=== PATIENT | female | born 1995 | race Caucasian/White ===

== ENCOUNTER 2018-05-06 08:46 | Emergency (ER) | payer OTHER ==
--- NOTE | 2018-05-06 09:34 | ED Physician Documentation ---
PD HPI UPPER EXT INJURY - Stated complaint Stated Complaint: RT RING FING SWELLING - Chief complaint Chief Complaint: Ext Problem - History obtained from History obtained from: Patient - History of Present Illness Location: Right, Finger (ring finger swelling due to ring tight. She does not usually wear ring on that finger. Painful to try to pull it off.) Type of injury: Other (ring stuck on finger and causing distal swelling.) Timing - onset: Today Timing - details: Gradual onset Worsened by: Moving, Palpating Associated symptoms: Swelling. No: Weakness, Numbness Similar symptoms before: Has not had sx before Review of Systems Neurologic: denies: Focal weakness, Numbness PD PAST MEDICAL HISTORY - Past Medical History Musculoskeletal: None - Present Medications Home Medications: Ambulatory Orders Medication Instructions Recorded Confirmed Pnv No.122/Iron/Folic Acid 05/06/18 [ Multi Tablet] - Allergies Allergies/Adverse Reactions: Allergies Allergy/AdvReac Type Severity Reaction Status Date / Time No Known Drug Allergies Allergy Verified 05/06/18 09:15 PD ED PE NORMAL - Vitals Vital signs reviewed: Yes - General General: Alert and oriented X 3, No acute distress, Well developed/nourished - Derm Derm: Normal color, Warm and dry - Extremities Extremities: Other (right ring finger with swelling distal to ring on finger. No sores. ) Results - Vitals Vitals: Oxygen O2 Source Room air PD MEDICAL DECISION MAKING - ED course Complexity details: considered differential (ring removal by nursing. Digital block with 2% lido proximal to the ring (MC head area) to help with the discomfort of the removal. ), d/w patient - Sepsis Event Vital Signs: Oxygen O2 Source Room air Departure - Departure Disposition: 01 Home, Self Care Clinical Impression: Finger swelling Condition: Stable Record reviewed to determine appropriate education?: Yes Comments: Let the swelling of the finger down through the day. Tylenol or ibuprofen if needed for pains. Discharge Date/Time: 05/06/18 10:11
[2018-05-06] MEDS ORDERED: LIDOCAINE 2% 10 ML MDV ONE (10:07)
[2018-05-06 10:13] VITALS: BP 109/84
== END 2018-05-06 10:11 | disposition home or self-care (01) ==
LOC: ED 08:46
DX: R22.9 Localized swelling, mass and lump, unspecified (principal); S60.454A Superficial foreign body of right ring finger, initial encounter; W49.04XA Ring or other jewelry causing external constriction, initial encounter
CPT/HCPCS: 64450; 99282; 99283

== ENCOUNTER 2018-05-13 19:37 | Emergency (ER) | payer OTHER ==
[2018-05-13] MEDS: SODIUM CHLORIDE 0.9% 1,000 ML IV ONE ×2 (20:09→21:47)
[2018-05-13 20:12] LABS: BASOPHILS % (AUTO) 0.4 %; EOSINOPHILS # (AUTO) 0.1 10^3/uL (0.0-0.7); EOSINOPHILS % (AUTO) 1.7 %; HGB - HEMOGLOBIN 13.7 g/dL (12.0-16.0); LYMPHOCYTES # (AUTO) 0.6 10^3/uL (1.5-3.5); LYMPHOCYTES % (AUTO) 8.3 %; MEAN CORPUSCULAR HEMOGLOBIN 28.2 pg (27.0-31.0); MEAN CORPUSCULAR HGB CONC 33.9 g/dL (32.0-36.0); MEAN CORPUSCULAR VOLUME 83.1 fL (81.0-99.0); MONOCYTES # (AUTO) 0.2 10^3/uL (0.0-1.0); MONOCYTES % (AUTO) 3.6 %; NEUTROPHILS # (AUTO) 5.7 10^3/uL (1.5-6.6); PLT - PLATELET COUNT 122 10^3/uL (130-450); RED BLOOD COUNT 4.85 10^6/uL (4.20-5.40); RED CELL DISTRIBUTION WIDTH 13.2 % (12.0-15.0); WHITE BLOOD COUNT 6.6 x10^3/uL (4.8-10.8)
[2018-05-13] MEDS: METOCLOPRAMIDE 10 MG/2 ML VIAL IVP STA (20:17)
--- NOTE | 2018-05-13 20:32 | ED Physician Documentation ---
History of Present Illness - Stated complaint Stated Complaint: VOMITING/19WKS - Chief complaint Chief Complaint: Abd Pain - History obtained from History obtained from: Patient - Additonal information Additional information: 22-year-old female at 19 weeks and 1 day presents the emergency department with generalized abdominal cramps with nausea and vomiting. The patient reports being unable to keep down fluids and has had decreased urine output. The patient denies a focal area of abdominal pain. The patient's pain is mostly associated with episodes of nausea and vomiting. The patient's son has similar symptoms. The patient denies blood in the vomit. The patient denies fevers, chills, cough, chest congestion, chest pain or shortness of breath. Symptoms are described as moderate. No other associated symptoms. No relief with over- the-counter Tylenol Review of Systems Constitutional: denies: Fever, Chills Eyes: denies: Discharge Ears: denies: Ear pain Nose: denies: Congestion Throat: denies: Oral lesions / sores Cardiac: denies: Chest pain / pressure GI: reports: Abdominal Pain, Nausea, Vomiting. denies: Diarrhea : denies: Dysuria, Hematuria, Vaginal bleeding Musculoskeletal: denies: Neck pain, Back pain Neurologic: denies: Generalized weakness Immunocompromised: denies: Chemotherapy PD PAST MEDICAL HISTORY - Past Medical History Past Medical History: No Musculoskeletal: None - Present Medications Home Medications: Ambulatory Orders Medication Instructions Recorded Confirmed Pnv No.122/Iron/Folic Acid 05/06/18 [ Multi Tablet] Metoclopramide [Reglan] 10 mg PO Q6H PRN #30 tablet 05/13/18 - Allergies Allergies/Adverse Reactions: Allergies Allergy/AdvReac Type Severity Reaction Status Date / Time No Known Drug Allergies Allergy Verified 05/13/18 19:45 - Social History Does the pt smoke?: No Smoking Status: Never smoker PD ED PE NORMAL - General General: Alert and oriented X 3, No acute distress - HEENT HEENT: Atraumatic, PERRL, Moist mucous membranes - Neck Neck: Supple, no meningeal sign - Cardiac Cardiac: RRR, Strong equal pulses - Respiratory Respiratory: No respiratory distress - Abdomen Abdomen: Normal bowel sounds, Soft, Non distended, Other ( abdomen). No : Non tender (The patient has generalized tenderness, no focal tenderness, no rebound or peritoneal signs) - Derm Derm: No: Normal color - Extremities Extremities: No deformity, Normal ROM s pain, No edema - Neuro Neuro: Alert and oriented X 3, Normal speech - Psych Psych: Normal mood Results - Vitals Vitals: Vital Signs - 24 hr 05/13/18 05/13/18 19:40 21:33 Temperature 36.9 C Heart Rate 100 93 Respiratory 20 16 Rate Blood Pressure 107/66 111/69 O2 Saturation 99 100 Oxygen O2 Source Room air - Labs Labs: Laboratory Tests 05/13/18 05/13/18 05/13/18 20:08 20:08 21:24 WBC 6.6 RBC 4.85 Hgb 13.7 Hct 40.3 MCV 83.1 MCH 28.2 MCHC 33.9 RDW 13.2 Plt Count 122 L MPV 10.0 Neut # (Auto) 5.7 Lymph # (Auto) 0.6 L Carlton # (Auto) 0.2 Eos # (Auto) 0.1 Baso # (Auto) 0.0 Absolute Nucleated RBC 0.01 Nucleated RBC % 0.1 Sodium 133 L Potassium 3.2 L Chloride 101 Carbon Dioxide 21 Anion Gap 11.0 BUN 11 Creatinine 0.5 Estimated GFR (MDRD) 153 Glucose 95 Calcium 8.6 Total Bilirubin 1.6 H AST 17 ALT 12 Alkaline Phosphatase 56 Total Protein 7.2 Albumin 3.5 Globulin 3.7 Albumin/Globulin Ratio 0.9 L Lipase 18 L Urine Color YELLOW Urine Clarity HAZY Urine pH 6.0 Ur Specific Patterson 1.020 Urine Protein NEGATIVE Urine Glucose (UA) NEGATIVE Urine Ketones 40 H Urine Occult Blood NEGATIVE Urine Nitrite NEGATIVE Urine Bilirubin NEGATIVE Urine Urobilinogen 0.2 (NORMAL) Ur Leukocyte Esterase TRACE H Urine RBC None Seen Urine WBC 4-5 Ur Squamous Epith Cells MANY Squamous H Urine Bacteria Moderate H Ur Microscopic Review INDICATED Urine Culture Comments NOT INDICATED PD MEDICAL DECISION MAKING - ED course ED course: On reevaluation the patient is resting comfortably, the patient feels much improved and on reexamination of her abdomen she has no tenderness to palpation. The patient is requesting discharge home. I discussed with the patient warning signs, I discussed the possibility of an early appendicitis, I recommended returning to the emergency department immediately for any worsening or any concerns. - Sepsis Event Vital Signs: Vital Signs - 24 hr 05/13/18 05/13/18 19:40 21:33 Temperature 36.9 C Heart Rate 100 93 Respiratory 20 16 Rate Blood Pressure 107/66 111/69 O2 Saturation 99 100 Oxygen O2 Source Room air Departure - Departure Disposition: 01 Home, Self Care Clinical Impression: Abdominal pain affecting Vomiting Qualifiers: Vomiting type: unspecified Vomiting Intractability: unspecified Nausea presence : with nausea Qualified Code(s): R11.2 - Nausea with vomiting, unspecified Condition: Good Instructions: ED Abdominal Pain Appendx Poss, ED Nausea Vomiting Prescriptions: Metoclopramide [Reglan] 10 mg PO Q6H PRN #30 tablet PRN Reason: Nausea / Vomiting Comments: Please follow-up with your OB this week for recheck. Please return to the emergency department immediately for worsening symptoms or any concerns
[2018-05-13] MEDS: ACETAMINOPHEN 500 MG TABLET PO STA (20:35)
[2018-05-13] MEDS: MORPHINE 10 MG/ML VIAL IVP STA (20:35)
[2018-05-13 20:36] LABS: ALBUMIN 3.5 g/dL (3.2-5.5); ALBUMIN/GLOBULIN RATIO 0.9 (1.0-2.2); BILIRUBIN,TOTAL 1.6 mg/dL (0.2-1.0); CALCIUM 8.6 mg/dL (8.5-10.3); CREATININE 0.5 mg/dL (0.4-1.0); TOTAL PROTEIN 7.2 g/dL (6.7-8.2)
[2018-05-13] MEDS: POTASSIUM CHLORIDE 20 MEQ TABLET PO STA (20:55)
[2018-05-13 21:34] LABS: BILIRUBIN,URINE NEGATIVE (NEGATIVE); GLUCOSE, URINE (UA) NEGATIVE (NEGATIVE); KETONES,URINE (UA) 40 mg/dL (NEGATIVE); LEUKOCYTE ESTERASE, URINE TRACE (NEGATIVE); NITRITE,URINE NEGATIVE (NEGATIVE); OCCULT BLOOD,URINE NEGATIVE (NEGATIVE); PROTEIN,URINE NEGATIVE (NEGATIVE); UROBILINOGEN,URINE 0.2 (NORMAL) E.U./dL (NORMAL)
[2018-05-13 21:39] LABS: CLARITY,URINE HAZY (CLEAR)
[2018-05-13 21:43] LABS: BACTERIA,URINE Moderate /HPF (None Seen); RBC,URINE None Seen /HPF (0-5); SQUAMOUS EPITHELIAL CELL,UR MANY Squamous (<= Few)
[2018-05-13] MEDS: PROMETHAZINE INJ 25 MG in SODIUM CHLORIDE 0.9% 50 ML IV STA (21:46)
[2018-05-13 22:32] VITALS: BP 113/74
== END 2018-05-13 22:31 | disposition home or self-care (01) ==
LOC: ED 19:37
DX: O26.892 Other specified pregnancy related conditions, second trimester (principal); R10.84 Generalized abdominal pain; O21.9 Vomiting of pregnancy, unspecified; Z3A.19 19 weeks gestation of pregnancy
CPT/HCPCS: 36415; 80053; 81001; 83690; 85025; 96361; 96365; 96375; 99283; 99284; A9270; J2765; J7040; 81003; 87086

== ENCOUNTER 2018-07-26 14:33 | Emergency (ER) | payer OTHER ==
[2018-07-26 14:50] VITALS: BP 120/59
[2018-07-26] MEDS ORDERED: LIDOCAINE 2% 10 ML MDV SUBQ STA (15:31)
[2018-07-26] MEDS ORDERED: LIDOCAINE 2% 10 ML MDV ONE (15:34)
--- NOTE | 2018-07-26 15:40 | ED Physician Documentation ---
PD HPI UPPER EXT INJURY - Stated complaint Stated Complaint: R HAND LAC - Chief complaint Chief Complaint: Laceration - History obtained from History obtained from: Patient - History of Present Illness Location: Right, Hand Type of injury: Laceration (while washing a knife) Where injury occurred: Home, Other (1) Timing - duration: Hours Timing - details: Abrupt onset Pain level max: 5 Pain level now: 5 Improved by: Rest Worsened by: Moving, Palpating Associated symptoms: No: Weakness, Numbness, Tingling Contributing factors: No: Anticoagulated Similar symptoms before: Has not had sx before Recently seen: Not recently seen - Additonal information Additional information: Pt is right handed, Td UTD Review of Systems : reports: Now EGA (30 weeks) Neurologic: denies: Focal weakness, Numbness PD PAST MEDICAL HISTORY - Past Medical History Past Medical History: Yes Musculoskeletal: None - Present Medications Home Medications: Ambulatory Orders Medication Instructions Recorded Confirmed Pnv No.122/Iron/Folic Acid 05/06/18 [ Multi Tablet] Metoclopramide [Reglan] 10 mg PO Q6H PRN #30 tablet 05/13/18 - Allergies Allergies/Adverse Reactions: Allergies Allergy/AdvReac Type Severity Reaction Status Date / Time No Known Drug Allergies Allergy Verified 05/13/18 19:45 - Living Situation Living Situation: reports: With family Living Arrangement: reports: At home - Social History Does the pt smoke?: No Smoking Status: Never smoker PD ED PE NORMAL - Vitals Vital signs reviewed: Yes - General General: Alert and oriented X 3, No acute distress - HEENT HEENT: Moist mucous membranes - Neck Neck: Supple, no meningeal sign - Neuro Neuro: Alert and oriented X 3 PD ED PE EXPANDED - Extremities RUSS UE/Hands Visual: 1 - laceration (2cm, subcutaneous, NVI. no tendon injury. finger movement tested vs resistance) Results - Vitals Vitals: Vital Signs - 24 hr 07/26/18 14:47 Temperature 36.3 C L Heart Rate 88 Respiratory 18 Rate Blood Pressure 120/59 L O2 Saturation 97 Oxygen O2 Source Room air Procedures - Laceration (location) R palm Length in cm: 2 Wound type: Linear, Into subcut fat Neurovascular status: Sensory intact, Motor intact, Vascular intact Tendon involvement: Tendon intact Anesthesia: Lidocaine 2% Wound Preparation: Irrigated copiously NS Skin layer closure: Nylon, Interrupted, Size #-0 - enter number (4), Sutures - enter # (3) Other: Patient tolerated well, No complications, Neurovascular intact, Tetanus UTD Complexity: Simple PD MEDICAL DECISION MAKING - ED course Complexity details: reviewed results, re-evaluated patient, considered differential, d/w patient ED course: Patient with a right palm laceration. Repaired in the emergency department. Tolerated well. No tendon injury. Neurovascularly intact. Warnings of infection and instructions on wound care given at bedside. Also counseled on how to minimize scarring. Patient counseled regarding signs and symptoms for which I believe and urgent re-evaluation would be necessary. Patient with good understanding of and agreement to plan and is comfortable going home at this time This document was made in part using voice recognition software. While efforts are made to proofread this document, sound alike and grammatical errors may occur. - Sepsis Event Vital Signs: Vital Signs - 24 hr 07/26/18 14:47 Temperature 36.3 C L Heart Rate 88 Respiratory 18 Rate Blood Pressure 120/59 L O2 Saturation 97 Oxygen O2 Source Room air Departure - Departure Disposition: 01 Home, Self Care Clinical Impression: Laceration of palm Qualifiers: Encounter type: initial encounter Laterality: right Qualified Code(s): S61.411A - Laceration without foreign body of right hand, initial encounter Condition: Good Instructions: ED Laceration Hand Follow-Up: GITA GLEASON DO [Primary Care Provider] - (in 10 days for suture removal) Comments: Keep the wound clean. Return if you worsen, especially for redness, swelling or drainage from the wound. Follow-up with your doctor in approximately 10 days for suture removal. Discharge Date/Time: 07/26/18 15:59
[2018-07-26] MEDS ORDERED: BACITRACIN OINT TOP ONE ×2 (15:54→16:00)
== END 2018-07-26 15:59 | disposition home or self-care (01) ==
LOC: ED 14:33
DX: S61.411A Laceration without foreign body of right hand, initial encounter (principal); W26.0XXA Contact with knife, initial encounter; Y93.G1 Activity, food preparation and clean up
CPT/HCPCS: 12001; 99282; 99283; A9270

== ENCOUNTER 2018-07-31 11:53 | Outpatient (CLI) | payer OTHER ==
[2018-07-31 13:49] LABS: HGB - HEMOGLOBIN 11.8 g/dL (12.0-16.0); MEAN CORPUSCULAR HEMOGLOBIN 27.5 pg (27.0-31.0); MEAN CORPUSCULAR HGB CONC 33.7 g/dL (32.0-36.0); MEAN CORPUSCULAR VOLUME 81.5 fL (81.0-99.0); MEAN PLATELET VOLUME 9.5 fL (7.9-10.8); RED BLOOD COUNT 4.29 10^6/uL (4.20-5.40); RED CELL DISTRIBUTION WIDTH 13.9 % (12.0-15.0); WHITE BLOOD COUNT 7.4 x10^3/uL (4.8-10.8)
== END 2018-07-31 11:54 | disposition home or self-care (01) ==
LOC: LAB 11:53
PROVIDERS: ATTEND Registered Nurse
DX: Z34.83 Encounter for supervision of other normal pregnancy, third trimester (principal)
CPT/HCPCS: 36415; 82950; 85027; 86850

== ENCOUNTER 2018-08-15 16:10 | Outpatient (CLI) | payer OTHER ==
[2018-08-15 16:26] LABS: HGB - HEMOGLOBIN 11.8 g/dL (12.0-16.0); MEAN CORPUSCULAR HEMOGLOBIN 26.7 pg (27.0-31.0); MEAN CORPUSCULAR HGB CONC 33.3 g/dL (32.0-36.0); MEAN PLATELET VOLUME 9.8 fL (7.9-10.8); RED BLOOD COUNT 4.44 10^6/uL (4.20-5.40); RED CELL DISTRIBUTION WIDTH 13.8 % (12.0-15.0); WHITE BLOOD COUNT 9.8 x10^3/uL (4.8-10.8)
== END 2018-08-15 16:11 | disposition home or self-care (01) ==
LOC: LAB 16:10
PROVIDERS: ATTEND Nurse Practitioner Obstetrics & Gynecology
DX: D69.6 Thrombocytopenia, unspecified (principal)
CPT/HCPCS: 36415; 85027

== ENCOUNTER 2018-08-24 15:48 | Outpatient (CLI) | payer OTHER ==
[2018-08-24 18:50] LABS: HGB - HEMOGLOBIN 10.9 g/dL (12.0-16.0); MEAN CORPUSCULAR HEMOGLOBIN 26.6 pg (27.0-31.0); MEAN CORPUSCULAR HGB CONC 33.5 g/dL (32.0-36.0); MEAN CORPUSCULAR VOLUME 79.5 fL (81.0-99.0); MEAN PLATELET VOLUME 10.1 fL (7.9-10.8); RED BLOOD COUNT 4.1 10^6/uL (4.20-5.40); RED CELL DISTRIBUTION WIDTH 13.8 % (12.0-15.0); WHITE BLOOD COUNT 7.6 x10^3/uL (4.8-10.8)
== END 2018-08-24 15:49 | disposition home or self-care (01) ==
LOC: LAB.N 15:48
PROVIDERS: ATTEND Nurse Practitioner Obstetrics & Gynecology
DX: D69.6 Thrombocytopenia, unspecified (principal)
CPT/HCPCS: 36415; 85027

== ENCOUNTER 2018-08-28 12:19 | Outpatient (CLI) | payer OTHER ==
--- NOTE | 2018-08-28 16:04 | Ultrasound Report ---
Reason: ENCOUNTER FOR SCREENING FOR MACROS Procedure Date: 08/28/2018 Accession Number: [id number] / [id number] Procedure: US - OB F/U or Repeat CPT Code: FULL RESULT: EXAM: COMPLETE OBSTETRICAL ULTRASOUND EXAM DATE: 08/28/2018 01:17 PM. CLINICAL HISTORY: macrosomia. COMPARISON: None. TECHNIQUE: Real-time sonographic evaluation of the fetus performed by the primer supervisor. Multiple commercial pest control representative static images were saved for review. DATING: Established EGA 34 weeks 4 days with KONSTANTIN 10/05/2018 based on obstetric provider provided established due date. EGA 37 weeks 3 days with KONSTANTIN 09/15/2018 based on the current ultrasound. GENERAL EVALUATION Ziegler . Cardiac activity: 139 bpm. movement: Visualized. Presentation: Breech Placenta: Anterior position. No evidence for previa. Amniotic fluid: ALEJANDRA 12.5 MVP 5.5 cm. BIOMETRY Bi-Parietal Diameter (BPD): 9.2 cm, 37 weeks 1 day Head Circumference (HC): 34.5 cm, 39 weeks 6 days Abdominal Circumference (AC): 33.7 cm, 37 weeks 4 days Femur Length (FL): 6.8 cm, 35 weeks 1 day Estimated Weight: 3134 g, 97th percentile for 34 weeks 4 days. IMPRESSION: 1. Ziegler live intrauterine with gestational age 34 weeks 4 days based on provider supplied established due date. 2. Estimated weight is at the 97th percentile for the provided established due dates. MILVIA
== END 2018-08-28 12:20 | disposition home or self-care (01) ==
LOC: DI 12:19
PROVIDERS: ATTEND Nurse Practitioner Obstetrics & Gynecology
DX: Z36.88 Encounter for antenatal screening for fetal macrosomia (principal)
CPT/HCPCS: 76816

== ENCOUNTER 2018-09-04 08:00 | Outpatient (CLI) | payer OTHER | END 2018-09-04 08:01 | disposition home or self-care (01) | LOC: LAB.R 08:00 | PROVIDERS: ATTEND Obstetrics & Gynecology | DX: Z36.9 Encounter for antenatal screening, unspecified (principal) | CPT/HCPCS: 87081 ==

== ENCOUNTER 2018-09-05 15:40 | Outpatient (CLI) | payer OTHER ==
[2018-09-05 19:21] LABS: HGB - HEMOGLOBIN 11.9 g/dL (12.0-16.0); MEAN CORPUSCULAR HEMOGLOBIN 26.1 pg (27.0-31.0); MEAN CORPUSCULAR HGB CONC 32.5 g/dL (32.0-36.0); MEAN CORPUSCULAR VOLUME 80.2 fL (81.0-99.0); RED BLOOD COUNT 4.57 10^6/uL (4.20-5.40); RED CELL DISTRIBUTION WIDTH 14.6 % (12.0-15.0); WHITE BLOOD COUNT 8.1 x10^3/uL (4.8-10.8)
== END 2018-09-05 15:41 ==
LOC: LAB.N 15:40
PROVIDERS: ATTEND Obstetrics & Gynecology
DX: D69.6 Thrombocytopenia, unspecified (principal)
CPT/HCPCS: 36415; 85027

== ENCOUNTER 2018-09-07 12:52 | Outpatient (CLI) | payer OTHER ==
--- NOTE | 2018-09-07 16:45 | Ultrasound Report ---
Reason: UTERINE SIZE-DATE DISCREPANCY, 3RD TRIMESTER Procedure Date: 09/07/2018 Accession Number: [id number] / [id number] Procedure: US - OB F/U or Repeat CPT Code: FULL RESULT: EXAM: COMPLETE OBSTETRICAL ULTRASOUND EXAM DATE: 09/07/2018 01:00 PM. CLINICAL HISTORY: Uterine size-date discrepancy, third trimester. Macrosomia. COMPARISON: OB F/U OR REPEAT 08/28/2018 1:17 PM. TECHNIQUE: Real-time sonographic evaluation of the fetus performed by the bailing machine operator. Multiple apprenticeship training representative static images were saved for review. Additional transvaginal imaging to more accurately evaluate cervical length/placental position/etc. DATING: Established EGA 36 weeks 0 days with KONSTANTIN 10/05/2018 based on first ultrasound. EGA 38 weeks 5 days with KONSTANTIN 09/16/18 based on the current ultrasound. GENERAL EVALUATION Ziegler . Cardiac activity: 134 bpm. movement: Visualized. Presentation: Breech Placenta: Anterior position. No evidence for previa. Umbilical cord: 3 vessel cord. Central placental cord origin. Amniotic fluid: ALEJANDRA 13.0 cm. Normal. MVP 4.4 cm. BIOMETRY Bi-Parietal Diameter (BPD): 9.6 cm, 38 weeks 6 days Head Circumference (HC): 35.2 cm, 40 weeks 6 days Abdominal Circumference (AC): 36.6 cm, 40 weeks 3 days Femur Length (FL): 6.8 cm, 34 weeks 6 days Estimated Weight: 3732 g, 95.4 percentile for 36 weeks 0 days. ANATOMY Not assessed. MATERNAL STRUCTURES Uterus: Unremarkable. Cervix: Obscured by head. Right ovary/adnexa: Not assessed. Left ovary/adnexa: Not assessed. Free fluid: None. IMPRESSION: 1. Ziegler live intrauterine with gestational age 36 weeks 0 days based on first ultrasound. 2. Estimated weight is 95.4 percentile for the provided established due date. RADIA
== END 2018-09-07 12:53 | disposition home or self-care (01) ==
LOC: DI 12:52
PROVIDERS: ATTEND Registered Nurse
DX: O26.843 Uterine size-date discrepancy, third trimester (principal)
CPT/HCPCS: 76816

== ENCOUNTER 2018-09-20 17:06 | Outpatient (CLI) | payer OTHER ==
[2018-09-20 17:22] VITALS: BP 108/67
== END 2018-09-20 19:24 | disposition home or self-care (01) ==
LOC: WFO 17:06 → FBP 17:07 → WFO 19:24
PROVIDERS: ATTEND Obstetrics & Gynecology
DX: O32.1XX0 Maternal care for breech presentation, not applicable or unspecified (principal); Z3A.38 38 weeks gestation of pregnancy
CPT/HCPCS: 99212

== ENCOUNTER 2018-10-02 10:08 | Outpatient (CLI) | payer OTHER ==
[2018-10-02 10:44] LABS: BASOPHILS # (AUTO) 0.1 10^3/uL (0.0-0.1); EOSINOPHILS # (AUTO) 0.1 10^3/uL (0.0-0.7); EOSINOPHILS % (AUTO) 1.5 %; HGB - HEMOGLOBIN 12.3 g/dL (12.0-16.0); LYMPHOCYTES # (AUTO) 1.4 10^3/uL (1.5-3.5); LYMPHOCYTES % (AUTO) 19.6 %; MEAN CORPUSCULAR HEMOGLOBIN 25.7 pg (27.0-31.0); MEAN CORPUSCULAR HGB CONC 33.9 g/dL (32.0-36.0); MEAN CORPUSCULAR VOLUME 75.9 fL (81.0-99.0); MEAN PLATELET VOLUME 9.7 fL (7.9-10.8); MONOCYTES # (AUTO) 0.6 10^3/uL (0.0-1.0); MONOCYTES % (AUTO) 8.7 %; NEUTROPHILS # (AUTO) 4.9 10^3/uL (1.5-6.6); NEUTROPHILS % (AUTO) 69.2 %; PLT - PLATELET COUNT 122 10^3/uL (130-450); RED CELL DISTRIBUTION WIDTH 15.5 % (12.0-15.0); WHITE BLOOD COUNT 7.1 x10^3/uL (4.8-10.8)
[2018-10-02 11:15] LABS: PLATELET ESTIMATE, MANUAL DECREASED (<130,000) (NORMAL)
== END 2018-10-02 10:09 | disposition home or self-care (01) ==
LOC: LAB 10:08
PROVIDERS: ATTEND Obstetrics & Gynecology
DX: Z01.812 Encounter for preprocedural laboratory examination (principal); O36.60X0 Maternal care for excessive fetal growth, unspecified trimester, not applicable or unspecified
CPT/HCPCS: 36415; 85025; 86850; 86900; 86901

== ENCOUNTER 2018-10-03 05:51 | Inpatient (IN) | payer OTHER ==
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
[~2018-10-03 05:51] MED LIST: CITRIC ACID/SODIUM CITRATE 15 ML UDC PO ONE; LACTATED RINGERS 1,000 ML IV SCH; ONDANSETRON 4 MG/2 ML VIAL IVP PRN; SODIUM CHLORIDE FLUSH 0.9% 10 ML SYRINGE IVP PRN; ceFAZolin 2 GM/50 ML 2 GM/50 ML BAG IV ONE
[2018-10-03] MEDS ORDERED: ceFAZolin 2 GM in SODIUM CHLORIDE 0.9% MINIBAG 100 ML IV SCH (06:17)
--- NOTE | 2018-10-03 07:01 | ANESTHESIA ---
Pre-Anesthesia VS, & Labs - Diagnosis Breech presentation - Procedure Primary C/S Vital Signs: Temp Pulse Resp BP Pulse Ox 36.9 C 80 16 110/63 96 10/03/18 06:10 10/03/18 06:10 10/03/18 06:10 10/03/18 06:10 10/03/18 06:10 Height 5 ft 2 in Weight (kg) 77.111 kg Body Mass Index 29.2 - NPO >8 hours - Is Patient ?: Yes - Lab Results Current Lab Results: Reviewed, plat. 122, Hgb 12.3, hct36.4 Lab results reviewed: Yes Home Medications and Allergies Active Medications Lactated Ringer's (Lr) 1,000 mls @ 150 mls/hr IV .Q6H40M DENIA Oxytocin/Sodium Chloride (Pitocin/Sodium Chloride) 500 mls @ 1 mls/hr IV TITR DENIA; Protocol Cefazolin Sodium 2 gm/ Sodium (Chloride) 100 mls @ 200 mls/hr IV ONCE DENIA Stop: 10/03/18 07:30 Last Admin: 10/03/18 06:45 Dose: 200 mls/hr Ondansetron HCl (Zofran Inj) 4 mg IVP Q4H PRN PRN Reason: Nausea / Vomiting Sodium Chloride (Normal Saline Flush 0.9%) 10 ml IVP PRN PRN PRN Reason: NEEDED PER PROVIDER ORDERS Sodium Chloride (Normal Saline Flush 0.9%) 10 ml IVP 0100,0900,1700 [facility] Pnv No.122/Iron/Folic Acid [ Multi Tablet] 05/06/18 Allergies/Adverse Reactions: Allergies Allergy/AdvReac Type Severity Reaction Status Date / Time No Known Drug Allergies Allergy Verified 05/13/18 19:45 Anes History & Medical History - Anesthetic History Family history of Anesthesia Complications: Denies Family history of Malignant Hyperthermia: Denies - Medical History Cardiovascular: reports: None Pulmonary: reports: Asthma Gastrointestinal: reports: GERD (during ) Urinary: reports: None Neuro: reports: Other (febrile seizure) Musculoskeletal: reports: None Endocrine/Autoimmune: reports: None Blood Disorders: reports: None Smoking Status: Former smoker (quit 3 years ago) Psychosocial: reports: Depression, Anxiety - Obstetrical History : 2 Parity: 1 Events: positive: Other (history of macrosomia) Exam General: Alert, Oriented x3, Cooperative, No acute distress Dental: WNL Mouth Openin Fingerbreadth Neck Mobility: Normal Mallampati classification: I Respiratory: Lungs clear, Normal breath sounds, No respiratory distress, No accessory muscle use Cardiovascular: Regular rate, Normal S1, Normal S2, No murmurs Mental/Cognitive Status: Alert/Oriented X3, Normal for patient Plan Anesthesia Type: Spinal Consent for Procedure(s) Verified and Reviewed: Yes Code Status: Attempt Resuscitation ASA classification: 2-Mild systemic disease Is this case an emergency?: No
[2018-10-03] MEDS ORDERED: OXYTOCIN/SODIUM CHLORIDE 500 ML IV ONE ×3 (07:13→10:38)
[2018-10-03] MEDS ORDERED: LACTATED RINGERS 1,000 ML IV ONE ×2 (08:29→08:49)
[2018-10-03] MEDS ORDERED: KETOROLAC 30 MG/ML VIAL IVP ONE (08:30)
[2018-10-03] MEDS ORDERED: ePHEDrine 50 MG/ML VIAL IVP ONE (08:30)
[2018-10-03] MEDS ORDERED: fentaNYL 100 MCG/2 ML VIAL IVP ONE (08:30)
[2018-10-03] MEDS ORDERED: MORPHINE PF 5 MG/10 ML AMP EP ONE (08:30)
[2018-10-03] MEDS ORDERED: MAGNESIUM HYDROXIDE 2,400 MG/30 ML UDC PO PRN (08:57)
[2018-10-03] MEDS ORDERED: LORazepam 0.5 MG TABLET PO PRN (09:02)
--- NOTE | 2018-10-03 09:21 | OPERATIVE REPORT ---
Operative Report - General Admit Date: 10/03/18 - Other Other Information/Narrative: Date of Operation: 10/03/2018 Surgeon: Alondra Orellana DO FACOG Legal Transcriptionist: Antonio Galloway MD FACOG Core Extruder: Khloe Saldivar CRNA Anesthesia: Spinal Pre-op Dx: 1. 23 yo with a 39w5d IUP 2. Breech 3. Suspected macrosomia 4. Prior 3-4th degree perineal laceration with shoulder dystocia Pre-op Dx: 1. 23 yo with a 39w5d IUP 2. Breech 3. Suspected macrosomia 4. Prior 3-4th degree perineal laceration Procedure: delivery Findings: Single viable male in breech presentation. Apgars 9/9. wt 8 lbs 3.3 oz/ 3724 gm. Normal uterus, ovaries and fallopian tubes. Adhesion noted between left ovary and posterior uterus Specimens: 1. Cord blood 2. Placenta to patient Drains: 1. Delgadillo catheter to gravity 2. Prevena wound vac EBL: 350 mL Complications: None Dictation: [id number]
[2018-10-03] MEDS: OXYTOCIN/SODIUM CHLORIDE 500 ML IV SCH (09:54)
[2018-10-03] MEDS ORDERED: OXYTOCIN/SODIUM CHLORIDE 500 ML IV SCH (10:00)
[2018-10-03] MEDS: LACTATED RINGERS 1,000 ML IV SCH ×2 (10:28→20:08)
[2018-10-03] MEDS: ACETAMINOPHEN 500 MG TABLET PO SCH ×2 (10:38→18:09)
[2018-10-03] MEDS: CELECOXIB 100 MG CAPSULE PO SCH ×2 (11:40→21:05)
[2018-10-03] MEDS: SODIUM CHLORIDE FLUSH 0.9% 10 ML SYRINGE IVP SCH ×3 (11:40→18:05)
[2018-10-03] MEDS: DOCUSATE SODIUM 100 MG CAPSULE PO SCH ×2 (11:41→21:06)
[2018-10-03] MEDS: oxyCODONE 5 MG TABLET PO SCH ×5 (11:53→21:04)
--- NOTE | 2018-10-03 12:08 | OPERATIVE REPORT ---
DATE OF OPERATION: 10/03/2018 SURGEON: Alondra Orellana DO, FACOG SCIENCE INSTRUCTOR: Antonio Molina MD, FACOG. AUTOMOTIVE PRODUCTION WORKER: Colton Saldivar CRNA. ANESTHESIA: Spinal. PREOPERATIVE DIAGNOSES 1. A 23-year-old G3, P1-0-1-1 at 39 and 5/7 week intrauterine . 2. Breech. 3. Suspected macrosomia. 4. Prior third to fourth degree perineal laceration with shoulder dystocia on her first . POSTOPERATIVE DIAGNOSES 1. A 23-year-old G3, P1-0-1-1 at 39 and 5/7 week intrauterine . 2. Breech. 3. Suspected macrosomia. 4. Prior third to fourth degree perineal laceration with shoulder dystocia on her first . PROCEDURE: delivery. FINDINGS: Single viable male in breech presentation. Apgars were 9 and 9 at 1 and 5 minutes respectively. Weight is 8 pounds 3.3 ounces or 3724 grams. Normal uterus, ovaries and fallopian tubes. An adhesion was noted between the left ovary and posterior uterus. SPECIMENS: 1. Cord blood. 2. The placenta to patient, per her request. DRAINS: 1. Delgadillo catheter to gravity. 2. Prevena wound VAC. ESTIMATED BLOOD LOSS: 300 mL COMPLICATIONS: None. BRIEF HISTORY: Tess is a patient of [facility] and presented for a scheduled primary delivery. Shet had a very difficult delivery with her first in that she had a shoulder dystocia and third to fourth degree laceration. In addition, this baby has been found to be in breech presentation since approximately 35-36 weeks gestation. I did not offer the patient external cephalic version because I would recommend a delivery for her. I explained to the patient the risks, benefits, alternatives, indications, expectations of delivery appeared including a discussion of the risks of hemorrhage, infection, damage to surrounding organs, which may include, but are not limited to an inadvertent laceration, cauterization or ligation of the adjacent ureters, intestines and bladder. Furthermore, with the delivery, she may have nerve damage which may result in numbness to the surrounding skin area. Also, with surgery adhesions may form causing chronic pelvic pain. After all of the patient's questions were answered to her satisfaction, she verbalized her desire to proceed with surgery. Consent forms have been signed. OPERATION IN DETAIL: The patient was identified and consented, taken to the operating room where IV access was already in place. She was then given satisfactory spinal anesthesia. Sequential compression devices were placed on her lower extremities and turned on. A Delgadillo catheter was placed in her bladder. The patient was then prepped and draped in normal sterile fashion in the dorsal supine position with leftward tilt. Skin testing was found to be satisfactory. Timeout was performed in which correctly identified the patient, site of procedure and procedure itself. Pfannenstiel skin incision was first made approximately 2 fingerbreadths above the level of the pubic symphysis. This incision was then carried down to the underlying layer of fascia. The fascia was then nicked in the midline and extended laterally. The fascia was then dissected and the rectus muscles were divided bluntly in the midline. Peritoneum was then entered bluntly in the midline. The bladder flap was then created by dissecting off the vesicouterine peritoneum. The hysterotomy was made in a transverse U-shaped fashion. Amniotomy revealed clear fluid. A foot was seen at the hysterotomy. The legs were first gently delivered and a blue towel placed around the 's hip. The hips were then gently grasped and the baby was then delivered to the level of the nipples. The sacrum was anterior. The right shoulder was then rotated anteriorly and the right arm swept medially and inferiorly in order to avoid hyperextension to the shoulder. In a similar fashion, the left shoulder was rotated anteriorly and the left arm swept medially and inferiorly. Finally, a finger was placed in the infant's mouth in order to hyperflex the neck and avoid hyperextension. The infant's head delivered with the help of the fundal pressure. The umbilical cord was doubly clamped and cut and the infant was then handed off to the waiting OB nurses. Umbilical cord blood was then obtained and sent off. The uterus was then internal massaged and placenta delivered manually. The uterus was delivered on the abdomen and cleared of all clots and debris. Hysterotomy was closed with 2 sutures of 0 Vicryl, first in a running locked fashion and the second one in Lembert stitch. Some bleeding was noted on the middle and right corners of the hysterotomy. Hemostasis was noted after placing [id number] sutures in these areas. The posterior cul-de-sac was then irrigated and found to be hemostatically stable. Inspection of the adnexa was significant for an adhesion between the left ovary and the posterior uterus. This adhesion was excised with electrocautery. The uterus was then returned to the abdomen and the abdomen was copiously irrigated. Hemostasis was noted. The peritoneum was then closed with a running stitch of 2-0 Vicryl. The same stitch was used to reapproximate the rectus muscles. Fascia was then closed with 0 Vicryl in a running fashion. Castillo's fascia was then reapproximated with 0 Vicryl in a running fashion. Skin was then closed with a 4-0 Monocryl in a subcuticular fashion. Prevena wound VAC was then placed on top of the incision and turned on. The patient tolerated the procedure well and was taken back to the recovery room in stable and awake condition. She will be given routine care including around the clock Tylenol and Celebrex. In addition, she will be offered a 5-10 mg of oxycodone every 4 hours routinely. All sponge, lap, and needle counts were correct x2. TD: 10/03/2018 09:34 DESMOND
[2018-10-03] MEDS: SIMETHICONE CHEW 80 MG TABLET PO SCH ×2 (15:34→18:10)
[2018-10-04] MEDS: oxyCODONE 5 MG TABLET PO SCH ×6 (01:19→21:03)
[2018-10-04] MEDS: ACETAMINOPHEN 500 MG TABLET PO SCH ×3 (01:19→17:50)
[2018-10-04] MEDS: LACTATED RINGERS 1,000 ML IV SCH ×2 (05:29→16:32)
[2018-10-04] MEDS: SIMETHICONE CHEW 80 MG TABLET PO SCH ×3 (05:55→17:51)
[2018-10-04] MEDS: CELECOXIB 100 MG CAPSULE PO SCH ×2 (09:43→21:04)
[2018-10-04] MEDS: DOCUSATE SODIUM 100 MG CAPSULE PO SCH ×2 (09:43→21:04)
[2018-10-04] MEDS: OXYTOCIN/SODIUM CHLORIDE 500 ML IV SCH (10:08)
[2018-10-04] MEDS: SODIUM CHLORIDE FLUSH 0.9% 10 ML SYRINGE IVP SCH ×3 (10:08→17:44)
--- NOTE | 2018-10-04 11:11 | ANESTHESIA POST OP EVALUATION ---
Anesthesia Post Eval - Post Anesthesia Eval CV Function Including HR & BP: positive: Stable Pain Control: positive: Adequate Nausea & Vomiting: positive: Negative Mental Status: positive: Appropriate Anesthesia Complications: positive: None - Other Details/Therapies Other Details/Therapies: Patient denies any numbness or weakness or headache. Reported adequate surgical anesthesia. No apparent anesthesia complications
--- NOTE | 2018-10-04 13:14 | PROVIDER PROGRESS NOTE ---
Subjective - Prog Note Date Prog Note Date: 10/04/18 Prog Note Time: 13:12 - Subjective Subjective: Sitting in bed, holding baby. at bedside. Has ambulated and urinated without difficulty. No nausea or vomiting. Normal lochia. Has abdominal pain but at the end of medication. Objective - Vital Signs/Intake & Output Vital Signs: Vital Signs x48h Temp Pulse Resp BP Pulse Ox 10/04/18 12:24 98.4 F 86 18 111/62 97 10/04/18 08:05 98.2 F 79 18 102/52 L 98 Intake & Output: Intake & Output 10/01/18 10/02/18 10/03/18 10/04/18 23:59 23:59 23:59 23:59 Intake Total 3708.381 3726 Output Total 1725 3965 Balance -658.521 -2112 - Objective General Appearance: positive: No acute distress Abdomen: positive: Non-tender (Wound vac in place and working well. Some blood noted on left inferior area of wound vac.) Assessment/Plan - Problem List (1) delivery delivered Impression: 23 yo S/p CD, POD #1 Continue current care Instructions given for wound vac care Anticipate discharge to home Monday
[2018-10-05] MEDS: ACETAMINOPHEN 500 MG TABLET PO SCH ×3 (00:54→17:25)
[2018-10-05] MEDS: oxyCODONE 5 MG TABLET PO SCH ×6 (00:54→23:45)
[2018-10-05] MEDS: SODIUM CHLORIDE FLUSH 0.9% 10 ML SYRINGE IVP SCH ×3 (07:57→17:56)
[2018-10-05] MEDS: OXYTOCIN/SODIUM CHLORIDE 500 ML IV SCH (07:57)
[2018-10-05] MEDS: LACTATED RINGERS 1,000 ML IV SCH (07:58)
[2018-10-05] MEDS: DOCUSATE SODIUM 100 MG CAPSULE PO SCH ×2 (08:39→21:21)
[2018-10-05] MEDS: SIMETHICONE CHEW 80 MG TABLET PO SCH ×3 (08:39→17:56)
[2018-10-05] MEDS: CELECOXIB 100 MG CAPSULE PO SCH ×2 (08:39→21:21)
--- NOTE | 2018-10-05 08:56 | PROVIDER PROGRESS NOTE ---
Subjective - General Admit Date: 10/03/18 Procedure Date: 10/03/18 Post Op Days: 2 Procedure Performed: Repeat section - Review of Systems Wound/Incisions: positive: Healing well, Dressing dry and intact (Wound VAC functional) General: positive: Fatigue, Other (Patient requires periodic [place] for pain control.) HEENT: positive: No symptoms Pulmonary: positive: No symptoms Cardiovascular: positive: No symptoms Gastrointestinal: positive: Flatus Genitourinary: positive: Other (Minimal non-foul lochia) Musculoskeletal: positive: No symptoms Skin: positive: No symptoms Psychiatric: positive: No symptoms Objective - Patient Data Vital Signs: Vital Signs x48h Temp Pulse Resp BP Pulse Ox 10/05/18 08:46 98.1 F 87 17 108/57 L 96 10/05/18 01:00 98.8 F 72 15 103/58 L 98 Weight: Weight 10/03/18 10/04/18 10/05/18 23:59 23:59 23:59 Weight (kg) 77.111 kg Intake & Output: Intake and Output Totals x24h 10/03/18 10/04/18 10/05/18 23:59 23:59 23:59 Intake Total 7827.285 5816 Output Total 1729 8445 Balance -265.057 -0900 - Current Medications Current Medications: Current Medications Generic Name Dose Route Start Last Admin Trade Name Freq PRN Reason Stop Dose Admin Acetaminophen 1,000 mg 10/03/18 09:00 10/05/18 08:40 Tylenol PO 1,000 mg Q8H DENIA Administration Celecoxib 200 mg 10/03/18 09:00 10/05/18 08:39 Celebrex PO 200 mg BID DENIA Administration Docusate Sodium 100 mg 10/03/18 09:00 10/05/18 08:39 Colace 100mg Capsule PO 100 mg BID DENIA Administration Oxytocin/Sodium Chloride 500 mls @ 1 mls/hr 10/03/18 05:30 10/05/18 07:57 Pitocin/Sodium Chloride IV Not Given TITR DENIA Protocol 1 MILLIUNIT/MIN Lactated Ringer's 1,000 mls @ 100 mls/hr 10/03/18 09:00 10/05/18 07:58 Lr IV Not Given .Q10H DENIA Oxycodone HCl 5 - 10 mg 10/03/18 09:00 10/05/18 08:40 Roxicodone PO 10 mg Q4HR DENIA Administration Simethicone 80 mg 10/03/18 14:00 10/05/18 08:39 Mylicon PO 80 mg TID DENIA Administration Sodium Chloride 10 ml 10/03/18 05:30 10/05/18 07:57 Normal Saline Flush 0.9% IVP Not Given 0100,0900,1700 [facility] Physical Exam - Physical Exam General: positive: No acute distress, In Pain (Patient complains of lower abdominal pain currently just redosed on narcotic) HEENT: positive: Moist mucous membranes Neck: positive: Supple w/out meningeal sx Cardiac: positive: Regular Rate, Regular Rhythm Resipratory: positive: Clear to ausultation shikha Abdomen: positive: Normal Bowel sounds, Surgical Scars (Wound VAC intact and functional) Female : positive: Enlarged uterus (Uterus nontender 16-week size firm), Salesperson Flowers present Extremities: positive: Normal ROM, No pedal edema Skin: positive: Warm and dry Neurologic: positive: Alert and Oriented X 3, Normal motor/no weakness, Normal Sensation, Normal Speech Assessment/Plan - Assessment/Plan Assessment: Patient recovering from section but still requires supportive care. She is breast-feeding without difficulty. Plan: Continue hospitalization until she is capable of self-care and infant care. Dr. Galloway will continue postop care.
[2018-10-06] MEDS: ACETAMINOPHEN 500 MG TABLET PO SCH ×2 (01:55→09:58)
[2018-10-06] MEDS: oxyCODONE 5 MG TABLET PO SCH ×4 (03:58→12:02)
[2018-10-06] MEDS: OXYTOCIN/SODIUM CHLORIDE 500 ML IV SCH (08:05)
[2018-10-06] MEDS: SODIUM CHLORIDE FLUSH 0.9% 10 ML SYRINGE IVP SCH (08:05)
[2018-10-06] MEDS: DOCUSATE SODIUM 100 MG CAPSULE PO SCH (08:58)
[2018-10-06] MEDS: CELECOXIB 100 MG CAPSULE PO SCH (08:58)
--- NOTE | 2018-10-06 09:52 | PROVIDER PROGRESS NOTE ---
Subjective - General Admit Date: 10/03/18 Procedure Date: 10/03/18 Post Op Days: 3 Procedure Performed: Repeat section - Review of Systems Wound/Incisions: positive: Healing well, Dressing dry and intact (Wound VAC functional intact) General: positive: No symptoms (Pain 4/10 pt considers good control.), Fatigue, Other (Patient requires periodic [place] for pain control.) HEENT: positive: No symptoms Pulmonary: positive: No symptoms Cardiovascular: positive: No symptoms Gastrointestinal: positive: Flatus Genitourinary: positive: Other (Minimal non-foul lochia) Musculoskeletal: positive: No symptoms Skin: positive: No symptoms Psychiatric: positive: No symptoms Objective - Patient Data Reviewed Vital Signs: Yes Vital Signs: Vital Signs x48h Temp Pulse Resp BP Pulse Ox 10/06/18 07:54 36.6 C 74 18 101/56 L 97 Intake & Output: Intake and Output Totals x24h 10/04/18 10/05/18 10/06/18 23:59 23:59 23:59 Intake Total 1500 Output Total 3965 Balance -2465 - Lab Results Other Lab Results: Lab Results x24hrs 10/02/18 Range/Units 10:23 Crossmatch IS Only See Detail - Current Medications Current Medications: Current Medications Generic Name Dose Route Start Last Admin Trade Name Freq PRN Reason Stop Dose Admin Acetaminophen 1,000 mg 10/03/18 09:00 10/06/18 01:55 Tylenol PO 1,000 mg Q8H DENIA Administration Celecoxib 200 mg 10/03/18 09:00 10/06/18 08:58 Celebrex PO 200 mg BID DENIA Administration Docusate Sodium 100 mg 10/03/18 09:00 10/06/18 08:58 Colace 100mg Capsule PO 100 mg BID DENIA Administration Oxytocin/Sodium Chloride 500 mls @ 1 mls/hr 10/03/18 05:30 10/06/18 08:05 Pitocin/Sodium Chloride IV Not Given TITR DENIA Protocol 1 MILLIUNIT/MIN Lactated Ringer's 1,000 mls @ 100 mls/hr 10/03/18 09:00 10/05/18 07:58 Lr IV Not Given .Q10H DENIA Magnesium Hydroxide 2,400 mg 10/03/18 08:57 10/06/18 03:58 Milk Of Magnesia PO 2,400 mg Q8HR PRN Administration Constipation Oxycodone HCl 5 - 10 mg 10/03/18 09:00 10/06/18 08:13 Roxicodone PO 10 mg Q4HR DENIA Administration Simethicone 80 mg 10/03/18 14:00 10/05/18 17:56 Mylicon PO 80 mg TID DENIA Administration Sodium Chloride 10 ml 10/03/18 05:30 10/06/18 08:05 Normal Saline Flush 0.9% IVP Not Given 0100,0900,1700 DENIA - Physical Exam Wound/Incisions: positive: Dressing dry and intact (good vaccume) General Appearance: positive: No acute distress, Alert Respiratory: positive: Chest non-tender, No respiratory distress, Breath sounds nml Cardiovascular: positive: Regular rate & rhythm, No murmur, No gallop Abdomen: positive: Nml bowel sounds, Tenderness (as anticipated), Mass (U-2) Back: negative: CVA tenderness (R), CVA tenderness (L) Skin: positive: Color nml, No rash, Warm Extremities: negative: Calf tenderness, Letha's sign/cords Neurologic/Psychiatric: positive: Oriented x3 Impression/Plan - Problem List Problem List: POD #3 progressing well Plan to go home today when cleared by peds. Discharge medications Oxycodone 10 mg celebrex 200 mg RTC 1 week for wound VAC removal reviewed Beast feeding benifits.
--- NOTE | 2018-10-06 10:06 | Discharge Plan ---
Discharge Plan Disposition: 01 Home, Self Care Condition: Good Diet: Regular Activity Restrictions: Pelvic rest Shower Restrictions: No Driving Restrictions: No No Smoking: If you smoke, Please STOP! Call for help.
[2018-10-06] MEDS: SIMETHICONE CHEW 80 MG TABLET PO SCH ×2 (13:18→13:24)
[2018-10-06 14:59] VITALS: BP 123/68
--- NOTE | 2018-10-06 16:46 | Labor Flowsheet ---
Labor Flowsheet Datetime Report Generated by CPN: 10/06/2018 16:45 Datetime: 10/03/2018 16:27 VAGINAL EXAM Membranes Ruptured Date/Time: 10/03/2018 08:01 Membranes Rupture Method: Artificial Amniotic Fluid Color: Clear
--- NOTE | 2018-10-06 18:40 | DISCHARGE SUMMARY ---
Physician: Antonio Galloway MD DATE OF ADMISSION: 10/03/2018 DATE OF DISCHARGE: 10/06/2018 ADMITTING DIAGNOSES 1. A 23-year old G3, P1 at 39-5/7 weeks. 2. Breech presentation. DISCHARGE DIAGNOSES 1. A 23-year old G3, P1 at 39-5/7 weeks. 2. Breech presentation. PROCEDURE PERFORMED: Primary low transverse section. PRESENTING HISTORY: Patient is a 23-year-old G3, P1 female, who is 39.7 weeks. She had most of her OB care done at the [facility], but transferred at 30 weeks' gestational age. She had an ultrasound at 19 weeks, which confirmed her gestation. The patient's complication was that she was noted to have a breech presentation noted since 30 weeks' gestational age. Baby had been changing from breech to vertex, with eventual staying at breech. Baby also was measuring size greater than dates. She also had a history of a very traumatic vaginal delivery and so for this reason decided to go ahead and proceed with a primary section. LABORATORIES: Day prior to surgery she had a CBC done which showed a white count of 7.1, hemoglobin was 12.3, hematocrit was 36.4, platelets were 122. HOSPITAL COURSE: Patient admitted, at which time a primary low transverse section was performed without incident. A live male infant, with Apgars 8 and 9 weighing 8 pounds 3.3 ounces, was delivered. Her postoperative course has been unremarkable. Her diet has been advanced. She is passing flatus. She has good pain control at this time. She is being discharged to home on oxycodone as well as Celebrex and stool softener. She is instructed to follow up in the office in 1 week for removal of her wound VAC. We have reviewed the advantages of , the signs and symptoms of infection. TD: 10/06/2018 10:08 DESMOND
== END 2018-10-06 16:00 | disposition home or self-care (01) | DRG 788 ==
LOC: FBP 05:51
PROVIDERS: ADMIT Obstetrics & Gynecology; ATTEND Obstetrics & Gynecology
PROC: 10D00Z1 Extraction of Products of Conception, Low, Open Approach (ICD-10-PCS; principal; 2018-10-03 07:30)
DX: O32.1XX0 Maternal care for breech presentation, not applicable or unspecified (principal); O36.63X0 Maternal care for excessive fetal growth, third trimester, not applicable or unspecified; O99.52 Diseases of the respiratory system complicating childbirth; J45.909 Unspecified asthma, uncomplicated; O99.344 Other mental disorders complicating childbirth; F41.9 Anxiety disorder, unspecified; F32.9 Major depressive disorder, single episode, unspecified; Z3A.39 39 weeks gestation of pregnancy; Z37.0 Single live birth; Z86.79 Personal history of other diseases of the circulatory system; Z87.59 Personal history of other complications of pregnancy, childbirth and the puerperium; Z87.891 Personal history of nicotine dependence
CPT/HCPCS: 86850; 86900; 86901; 86920

== ENCOUNTER 2018-10-19 08:00 | Outpatient (CLI) | payer OTHER | END 2018-10-19 23:59 | disposition home or self-care (01) | LOC: LAB.R 08:00 | PROVIDERS: ATTEND Registered Nurse | DX: N89.8 Other specified noninflammatory disorders of vagina (principal) | CPT/HCPCS: 87480; 87510; 87660 ==

== ENCOUNTER 2019-05-04 10:16 | Outpatient (CLI) | payer OTHER | END 2019-05-04 10:17 | disposition critical access hospital (66) | LOC: EMS 10:16 | PROVIDERS: ATTEND Surgery | DX: T50.902A Poisoning by unspecified drugs, medicaments and biological substances, intentional self-harm, initial encounter (principal); R25.3 Fasciculation; Y92.009 Unspecified place in unspecified non-institutional (private) residence as the place of occurrence of the external cause | CPT/HCPCS: A0425; A0427 ==

== ENCOUNTER 2019-05-04 10:43 | Observation (INO) | payer OTHER ==
--- NOTE | 2019-05-04 10:55 | ED Physician Documentation ---
PD HPI MHE - Stated complaint Stated Complaint: SI - History obtained from History obtained from: Patient, EMS - History of Present Illness Primary symptom: Suicidal ideation, Self harm - OD Timing - onset: Enter time (809), Today Contributing factors: Other (post depression) Similar symptoms before: Diagnosis (PPD) Recently seen: Not recently seen - Additional information Additional information: 23-year-old female with a history of depression is on medication and she has not been regular with this. She has been in counseling until [facility] closed and she is no longer in counseling. She indicates that today she was trying to nurse her younger son when her older son pooped on the floor and she became overwhelmed and took a "handful" of pills. She no longer feels suicidal. She is uncertain exactly how many pills she took of what she has bottles of 3 pills, buspirone hydroxyzine and Wellbutrin. Review of Systems Constitutional: denies: Fever Eyes: denies: Decreased vision Ears: denies: Ear pain Nose: denies: Rhinorrhea / runny nose, Congestion Throat: denies: Sore throat Cardiac: denies: Chest pain / pressure Respiratory: denies: Dyspnea, Cough GI: denies: Abdominal Pain, Nausea, Vomiting : denies: Dysuria, Frequency PD PAST MEDICAL HISTORY - Past Medical History Cardiovascular: None Respiratory: Asthma Neuro: Other (febrile seizure) Endocrine/Autoimmune: None GI: GERD (during ) : None Musculoskeletal: None - Present Medications Home Medications: Ambulatory Orders Medication Instructions Recorded Confirmed Pnv No.122/Iron/Folic Acid 1 tab PO DAILY 05/06/18 05/04/19 [ Multi Tablet] Buspirone HCl 10 mg PO BID 05/04/19 05/04/19 buPROPion HCl [Bupropion HCl Sr] 100 mg PO BID 05/04/19 05/04/19 hydrOXYzine HCl [Hydroxyzine HCl] 25 mg PO TID PRN 05/04/19 05/04/19 - Allergies Allergies/Adverse Reactions: Allergies Allergy/AdvReac Type Severity Reaction Status Date / Time No Known Drug Allergies Allergy Verified 05/04/19 10:54 - Social History Does the pt smoke?: No Smoking Status: Former smoker (quit 3 years ago) PD ED PE NORMAL - Vitals Vital signs reviewed: Yes - General General: Alert and oriented X 3, Well developed/nourished, Other (flat affect and slight delay in execution of motor commands) - HEENT HEENT: Atraumatic, PERRL, EOMI - Neck Neck: Supple, no meningeal sign, No bony TTP - Cardiac Cardiac: RRR, No murmur - Respiratory Respiratory: No respiratory distress, Clear bilaterally - Abdomen Abdomen: Soft, Non tender - Back Back: No CVA TTP, No spinal TTP - Derm Derm: Normal color, Warm and dry, No rash - Extremities Extremities: No deformity, No edema - Neuro Neuro: Alert and oriented X 3, document preparation specialist 2-12 intact, No motor deficit, No sensory deficit, Normal speech Eye Opening: Spontaneous Motor: Obeys Commands Verbal: Oriented GCS Score: 15 - Psych Psych: Normal mood, Normal affect Results - Vitals Vitals: Vital Signs - 24 hr 05/04/19 05/04/19 10:44 12:38 Temperature 36.5 C Heart Rate 104 H 155 H Respiratory 16 23 Rate Blood Pressure 134/94 H 110/40 L O2 Saturation 100 100 Oxygen O2 Source Non-rebreather mask - EKG (time done) 1114 Rate: Rate (enter#) (90) Rhythm: NSR Ischemia: Normal ST segments Compare to prior EKG: Old EKG unavailable Computer interpretation: Disagree with computer (I do not see ST depression in the inferior leads ) - Labs Labs: Laboratory Tests 05/04/19 05/04/19 05/04/19 11:00 11:00 11:12 WBC 4.7 L RBC 5.00 Hgb 13.9 Hct 42.2 MCV 84.4 MCH 27.8 MCHC 32.9 RDW 12.8 Plt Count 145 MPV 11.9 H Neut # (Auto) 2.8 Lymph # (Auto) 1.3 L [place] # (Auto) 0.4 Eos # (Auto) 0.1 Baso # (Auto) 0.0 Absolute Nucleated RBC 0.00 Nucleated RBC % 0.0 Sodium Potassium Chloride Carbon Dioxide Anion Gap BUN Creatinine Estimated GFR (MDRD) Glucose Calcium Total Bilirubin AST ALT Alkaline Phosphatase Troponin I Total Protein Albumin Globulin Albumin/Globulin Ratio Lipase TSH Urine Color YELLOW Urine Clarity CLEAR Urine pH 7.0 Ur Specific [place] <=1.005 Urine Protein NEGATIVE Urine Glucose (UA) NEGATIVE Urine Ketones NEGATIVE Urine Occult Blood NEGATIVE Urine Nitrite NEGATIVE Urine Bilirubin NEGATIVE Urine Urobilinogen 0.2 (NORMAL) Ur Leukocyte Esterase NEGATIVE Ur Microscopic Review NOT INDICATED Urine Culture Comments NOT INDICATED Urine HCG, Qual NEGATIVE Salicylates Urine Opiates Screen NEGATIVE Ur Oxycodone Screen NEGATIVE Urine Methadone Screen NEGATIVE Ur Propoxyphene Screen NEGATIVE Acetaminophen Ur Barbiturates Screen NEGATIVE Ur Tricyclics Screen NEGATIVE Ur Phencyclidine Scrn NEGATIVE Ur Amphetamine Screen NEGATIVE U Methamphetamines Scrn NEGATIVE U Benzodiazepines Scrn NEGATIVE Urine Cocaine Screen NEGATIVE U Cannabinoids Screen POSITIVE H Ethyl Alcohol 05/04/19 05/04/19 05/04/19 11:12 11:12 11:12 WBC RBC Hgb Hct MCV MCH MCHC RDW Plt Count MPV Neut # (Auto) Lymph # (Auto) [place] # (Auto) Eos # (Auto) Baso # (Auto) Absolute Nucleated RBC Nucleated RBC % Sodium Potassium Chloride Carbon Dioxide Anion Gap BUN Creatinine Estimated GFR (MDRD) Glucose Calcium Total Bilirubin AST ALT Alkaline Phosphatase Troponin I < 0.04 Total Protein Albumin Globulin Albumin/Globulin Ratio Lipase TSH 1.04 Urine Color Urine Clarity Urine pH Ur Specific [place] Urine Protein Urine Glucose (UA) Urine Ketones Urine Occult Blood Urine Nitrite Urine Bilirubin Urine Urobilinogen Ur Leukocyte Esterase Ur Microscopic Review Urine Culture Comments Urine HCG, Qual Salicylates < 6.0 Urine Opiates Screen Ur Oxycodone Screen Urine Methadone Screen Ur Propoxyphene Screen Acetaminophen < 10 L Ur Barbiturates Screen Ur Tricyclics Screen Ur Phencyclidine Scrn Ur Amphetamine Screen U Methamphetamines Scrn U Benzodiazepines Scrn Urine Cocaine Screen U Cannabinoids Screen Ethyl Alcohol < 5.0 05/04/19 11:12 WBC RBC Hgb Hct MCV MCH MCHC RDW Plt Count MPV Neut # (Auto) Lymph # (Auto) [place] # (Auto) Eos # (Auto) Baso # (Auto) Absolute Nucleated RBC Nucleated RBC % Sodium 143 Potassium 3.1 L Chloride 103 Carbon Dioxide 25 Anion Gap 15.0 H BUN 16 Creatinine 0.6 Estimated GFR (MDRD) 123 Glucose 93 Calcium 9.6 Total Bilirubin 0.9 AST 19 ALT 19 Alkaline Phosphatase 89 Troponin I Total Protein 8.0 Albumin 4.7 Globulin 3.3 Albumin/Globulin Ratio 1.4 Lipase 20 L TSH Urine Color Urine Clarity Urine pH Ur Specific [place] Urine Protein Urine Glucose (UA) Urine Ketones Urine Occult Blood Urine Nitrite Urine Bilirubin Urine Urobilinogen Ur Leukocyte Esterase Ur Microscopic Review Urine Culture Comments Urine HCG, Qual Salicylates Urine Opiates Screen Ur Oxycodone Screen Urine Methadone Screen Ur Propoxyphene Screen Acetaminophen Ur Barbiturates Screen Ur Tricyclics Screen Ur Phencyclidine Scrn Ur Amphetamine Screen U Methamphetamines Scrn U Benzodiazepines Scrn Urine Cocaine Screen U Cannabinoids Screen Ethyl Alcohol PD MEDICAL DECISION MAKING - ED course Complexity details: reviewed old records, reviewed results, re-evaluated patient, considered differential, d/w patient ED course: 23 y/o female with an ingestion of an unknown amount of wellbutrin, buspirone and hydroxizine presents with some fatigue and a normal QT interval. Poison control is contacted and recommends "automatic" admission for monitoring with concerns for withdawal seizure while withdrawing from the buspirone while on the wellbutrin. The patient has a seizure in the ED generalized and aborted with IV ativan. She develops SVT and she is administered 6mg and then 12 mg of adenosine with partial reaction with 12mg. We prepared to repeat this and reconsidered after her heart rate decreased to under 140 and with fluids running it further decreased. Departure - Departure Disposition: ED Place in Observation Clinical Impression: Seizure Depression Qualifiers: Depression Type: depression Qualified Code(s): O99.345 - Other mental disorders complicating the puerperium; F53.0 - depression; O90.6 - mood disturbance Overdose Qualifiers: Encounter type: initial encounter Injury intent: intentional self-harm Qualified Code(s): T50.902A - Poisoning by unspecified drugs, medicaments and biological substances, intentional self-harm, initial encounter Condition: Serious
[2019-05-04 11:20] LABS: MUDS CUTOFF CONCENTRATIONS CUTOFF CONC BELOW:
[2019-05-04 11:23] LABS: BILIRUBIN,URINE NEGATIVE (NEGATIVE); GLUCOSE, URINE (UA) NEGATIVE (NEGATIVE); KETONES,URINE (UA) NEGATIVE (NEGATIVE); LEUKOCYTE ESTERASE, URINE NEGATIVE (NEGATIVE); NITRITE,URINE NEGATIVE (NEGATIVE); OCCULT BLOOD,URINE NEGATIVE (NEGATIVE); PROTEIN,URINE NEGATIVE (NEGATIVE); UROBILINOGEN,URINE 0.2 (NORMAL) E.U./dL (NORMAL)
[2019-05-04 11:23] LABS: BASOPHILS % (AUTO) 0.6 %; EOSINOPHILS # (AUTO) 0.1 10^3/uL (0.0-0.7); EOSINOPHILS % (AUTO) 2.6 %; HGB - HEMOGLOBIN 13.9 g/dL (12.0-16.0); LYMPHOCYTES # (AUTO) 1.3 10^3/uL (1.5-3.5); LYMPHOCYTES % (AUTO) 27.4 %; MEAN CORPUSCULAR HEMOGLOBIN 27.8 pg (27.0-31.0); MEAN CORPUSCULAR HGB CONC 32.9 g/dL (32.0-36.0); MEAN CORPUSCULAR VOLUME 84.4 fL (81.0-99.0); MEAN PLATELET VOLUME 11.9 fL (7.9-10.8); MONOCYTES # (AUTO) 0.4 10^3/uL (0.0-1.0); MONOCYTES % (AUTO) 8.8 %; NEUTROPHILS # (AUTO) 2.8 10^3/uL (1.5-6.6); NEUTROPHILS % (AUTO) 60.2 %; PLT - PLATELET COUNT 145 10^3/uL (130-450); RED CELL DISTRIBUTION WIDTH 12.8 % (12.0-15.0); WHITE BLOOD COUNT 4.7 x10^3/uL (4.8-10.8)
[2019-05-04 11:28] LABS: CLARITY,URINE CLEAR (CLEAR)
[2019-05-04 11:29] LABS: HCG UR QUAL NEGATIVE
[2019-05-04 11:36] LABS: AMPHETAMINE SCREEN,URINE NEGATIVE (NEGATIVE); BENZODIAZEPINES SCREEN, URINE NEGATIVE (NEGATIVE); COCAINE SCREEN URINE NEGATIVE (NEGATIVE); METHADONE SCREEN, URINE NEGATIVE (NEGATIVE); METHAMPHETAMINES SCREEN, URINE NEGATIVE (NEGATIVE); OPIATE SCREEN, URINE NEGATIVE (NEGATIVE); OXYCODONE SCREEN, URINE NEGATIVE (NEGATIVE); PROPOXYPHENE SCREEN, URINE NEGATIVE (NEGATIVE); TRICYCLIC ANTIDEPRESSANT,URINE NEGATIVE (NEGATIVE)
[2019-05-04 11:37] LABS: ACETAMINOPHEN < 10 ug/mL (10-30); SALICYLATE < 6.0 mg/dL
[2019-05-04] MEDS ORDERED: LORazepam 2 MG/ML VIAL IVP STA (12:00)
[2019-05-04] MEDS ORDERED: LORazepam 2 MG/ML VIAL ONE (12:17)
[2019-05-04 12:26] LABS: ALBUMIN 4.7 g/dL (3.2-5.5); ALBUMIN/GLOBULIN RATIO 1.4 (1.0-2.2); BILIRUBIN,TOTAL 0.9 mg/dL (0.2-1.0); CALCIUM 9.6 mg/dL (8.5-10.3); CREATININE 0.6 mg/dL (0.4-1.0)
[2019-05-04] MEDS ORDERED: FOLIC ACID INJ 1 MG, THIAMINE INJ 100 MG, MAGNESIUM SULFATE 2 GM, MULTIVITAMIN 10 ML in... IV STA ×5 (12:27)
[2019-05-04] MEDS ORDERED: ADENOSINE 6 MG/2 ML VIAL IVP STA ×3 (12:27→12:48)
[2019-05-04] MEDS ORDERED: POTASSIUM CHLORIDE 20 MEQ TABLET PO STA (13:08)
[2019-05-04] MEDS ORDERED: ACETAMINOPHEN 325 MG TABLET PO PRN (14:24)
[2019-05-04] MEDS ORDERED: ONDANSETRON 4 MG/2 ML VIAL IVP PRN (14:24)
[2019-05-04] MEDS ORDERED: SODIUM CHLORIDE FLUSH 0.9% 10 ML SYRINGE IVP PRN (14:24)
[2019-05-04] MEDS ORDERED: LORazepam 2 MG/ML VIAL IVP PRN (14:31)
--- NOTE | 2019-05-04 14:34 | HISTORY & PHYSICAL EXAMINATION ---
Chief Complaint - Chief Complaint Chief Complaint: suicide attempt History of Present Illness - History of Present Illness HPI Comment/Other: Ms. Pulliam is a 23-yrs-old female with a history of depression and remote seizure at her age 15 and asthma, who present ER for complain of suicide attempt. Upon examination, pt is alert and oriented, she appear fatigue and is easy to fall into sleep. she report today she was trying to nurse her younger son when her older one pooped on the floor and she became overwhelmed on the distress, then she took a lots of pills. She is unknown how many pills she exactly took. She has been consulting for her depression. she took buspirone, hydroxyzine and Wellbutrinis for her depression at home. pt was found to have seizure at ER. pt was given Ativan. Now her seizure is controlled. she did not remember how her seizure started and what happened on her seizure. pt also developed SVT of HR above 150 pause at ER. She was given once 6 mg Adenosine first, then 12 mg Adenosine. Now her tele reveals HR [address] She denies chest pain, palpitation, shortness of breath. lab tests except potassium 3.1 are unremarkable. Vital reveals pt is afebrile, and has tachycardia at 155, otherwise she is hemodynamical stable now. Poison control was contacted, and recommended pt is automatic admission for monitoring withdrawal seizure and other medical concerns. History - Past Medical History Cardiovascular: reports: None Respiratory: reports: Asthma Neuro: reports: Other (febrile seizure) Endocrine/Autoimmune: reports: None GI: reports: GERD (during ) NETWORK SYSTEMS OPERATOR: reports: None : reports: None HEENT: reports: Dental implants Psych: reports: Depression, Anxiety Musculoskeletal: reports: None Derm: reports: Eczema MRSA Hx?: No - Past Surgical History /NETWORK SYSTEMS OPERATOR: reports: section HEENT: reports: Other - Family & Social History Social History Notes: pt denies cigarette smoker, alcohol and drug abuse. - POLST Patient has POLST: No Meds/Allgy - Home Medications Home Medications: Ambulatory Orders Medication Instructions Recorded Confirmed Pnv No.122/Iron/Folic Acid 1 tab PO DAILY 05/06/18 05/04/19 [ Multi Tablet] Buspirone HCl 10 mg PO BID 05/04/19 05/04/19 buPROPion HCl [Bupropion HCl Sr] 100 mg PO BID 05/04/19 05/04/19 hydrOXYzine HCl [Hydroxyzine HCl] 25 mg PO TID PRN 05/04/19 05/04/19 - Allergies Allergies/Adverse Reactions: Allergies Allergy/AdvReac Type Severity Reaction Status Date / Time No Known Drug Allergies Allergy Verified 05/04/19 10:54 Review of Systems - Constitutional Constitutional: reports: Fatigue, Weakness. denies: Fever, Chills, Malaise, Poor appetite, Diaphoresis, Night sweats - Eyes Eyes: denies: Pain, Irritation, Amaurosis, Blurred vision, Spots in vision, Field loss, Vision loss, Dipolpia - Ears, Nose & Throat Ears, Nose & Throat: denies: Ear pain, Hearing loss, Hearing aids, Tinnitus, Vertigo, Nasal discharge, Nasal obstruction, Nasal congestion, Postnasal drainage, Sore throat, Hoarseness, Mouth lesions, Bleeding gums - Cardiovascular Cariovascular: denies: Irregular heart rate, Palpitations, Chest pain, Edema, Lightheadedness, Syncope, Exertional dyspnea, Decr. exercise tolerance - Respiratory Respiratory: denies: Cough, Sputum production, Wheezing, Snoring, Hemoptysis, Orthopnea, SOB at rest, SOB with exertion - Gastrointestinal Gastrointestinal: denies: Abdominal pain, Abdominal distention, Constipation, Diarrhea, Change in bowel habits, Rectal bleeding, Black stools, Bloody stools, Nausea, Vomiting, Bile emesis, Misael blood emesis, Coffee grounds emesis, Reflux/heartburn - Genitourinary Genitourinary: denies: Dysuria, Frequency, Urgency, Hematuria, Incontinence, Flank pain, Nocturia, Urethral discharge - Musculoskeletal Musculoskeletal: denies: Muscle pain, Back pain, Muscle aches, Stiffness, Limited range of motion, Muscle weakness, Joint pain - Integumentary Integumentary: denies: Rash, Pruritis, Lesions, Dryness, Lumps, Acne, Pigment changes, Nail changes - Neurological Neurological: reports: General weakness. denies: Focal weakness, Headache, Dizziness, Numbness, Memory problems, Pre-existing deficit, Abnormal gait, Seizures, Incoordination, Slurred speech - Psychiatric Psychiatric: denies: Depression, Anxiety, Suicidal, Delusions, Hallucinations, Homicidal - Endocrine Endocrine: denies: Polyuria, Polydypsia, Polyphagia, Intolerance to cold - Hematologic/Lymphatic Hematologic/Lymphatic: denies: Anemia, Bruising, Petechiae, Blood clots, Lympha denopathy, Bleeding tendencies Exam - Vital Signs Vital Signs: Vital Signs x48h Temp Pulse Resp BP Pulse Ox 05/04/19 12:38 155 H 23 110/40 L 100 05/04/19 10:44 36.5 C 104 H 16 134/94 H 100 - Physical Exam General Appearance: positive: No acute distress, Alert. negative: Lethargic Eyes Bilateral: positive: Normal inspection, PERRL, No lid inflammation, Conjunctivae nml ENT: positive: ENT inspection nml, Pharynx nml, No signs of dehydration. negative: Purulent nasal drainage, Pharyngeal erythema, Oral lesions Neck: positive: Nml inspection, Thyroid nml, No JVD, Trachea midline. negative: Thyromegaly, Lymphadenopathy (R), Lymphadenopathy (L), Stiff neck, Swell ing/bruising, Tracheal deviation Respiratory: positive: Chest non-tender, No respiratory distress, Breath sounds nml. negative: Wheezes, Rales, Rhonchi Cardiovascular: positive: Regular rate & rhythm, No murmur, No gallop, Tachycardia. negative: Irregularly irregular, Extrasystoles, Bradycardia, JVD present, Systolic murmur, Diastolic murmur Peripheral Pulses: positive: 2+ Abdomen: positive: Non-tender, No organomegaly, Nml bowel sounds, No distention. negative: Tenderness, Guarding, Rebound Back: positive: Nml inspection. negative: CVA tenderness (R), CVA tenderness (L) Skin: positive: Color nml, No rash, Warm, Dry. negative: Cyanosis, Diaphoresis, Pallor Extremities: positive: Non-tender, Full ROM, Nml appearance. negative: Calf tenderness, Joint swelling, Letha's sign/cords Neurologic/Psychiatric: positive: Oriented x3, Sensation nml, Mood/affect nml. negative: Weakness, Sensory loss, Facial droop, Slurred/abnml speech, Depressed mood/affect Sepsis Event Note (H) - Evaluation Current Stage of Sepsis: Ruled out Conclusion/Plan - Problem List (1) Suicide attempt Conclusion/Plan: pt had suicide attempt to take unknown number and kinds of three medications: buspirone, hydroxyzine and Wellbutrinis. pt has hx of depression. Followup suicide protocol to monitor pt consult with high school social studies teacher followup poison control's recommendations, closely monitor pt's seizure and other medical concerns. hold her home meds IVF of NS (2) Depression Conclusion/Plan: pt has hx of depression. she took buspirone, hydroxyzine and Wellbutrinis at home. but now she is poisoned by these meds will hold above meds now, will resume when pt is stable, followup psychiatrist as out-pt (3) Seizure Conclusion/Plan: pt has seizure at ER. after pt was given Ativan, her seizure is controlled. It seems to be caused by either poison of medications she overtook or distress. pt has remote seizure hx at the past, advise pt followup her neurologist as out-pt ativan PRN for seizure control seizure precaution. (4) SVT (supraventricular tachycardia) Conclusion/Plan: pt had SVT at ER, HR was over 150. after pt was treated with Adenosine, her rate is around 120 now [address] convert to [address]. pt denies chest pain, palpitation, SOB. pt is asymptomatic, and stable. SVT appear to be caused poison of medications she overtook or distress tele and vital closely monitor. (5) Hypokalemia Conclusion/Plan: pt's potassium is 3.1, will place the potassium (6) History of asthma Conclusion/Plan: pt is stable, no cough, no wheezing, no SOB albuterol PRN supplement of O2 as needed (7) Full code status Conclusion/Plan: pt request full code - Lab Results Fish Bones: 05/04/19 11:12 05/04/19 11:12 Core Measures - Anticipated LOS I expect patient to be DC'd or transferred within 96 hours.: Yes - DVT/VTE - Prophylaxis VTE/DVT Device ordered at admit?: Yes VTE/DVT Prophylaxis med ordered at admit?: Yes
[2019-05-04] MEDS ORDERED: SODIUM CHLORIDE 0.9% 1,000 ML IV SCH (15:00)
[2019-05-04] MEDS ORDERED: ALBUTEROL NEB 2.5 MG/3 ML INH PRN (15:13)
[2019-05-04] MEDS: SODIUM CHLORIDE FLUSH 0.9% 10 ML SYRINGE IVP SCH (16:33)
[2019-05-04] MEDS: SODIUM CHLORIDE 0.9% 1,000 ML IV SCH (16:33)
[2019-05-04] MEDS: POTASSIUM CHLOR 10 MEQ/100 ML 10 MEQ/100 ML BAG IV SCH ×2 (16:33→18:30)
[2019-05-04] MEDS: FAMOTIDINE 20 MG TABLET PO SCH (20:17)
[2019-05-05] MEDS: SODIUM CHLORIDE 0.9% 1,000 ML IV SCH ×2 (02:11→17:47)
[2019-05-05] MEDS: SODIUM CHLORIDE FLUSH 0.9% 10 ML SYRINGE IVP SCH ×4 (02:12→23:51)
[2019-05-05] MEDS ORDERED: SODIUM CHLORIDE 0.9% 1,000 ML IV ONE (02:15)
[2019-05-05 06:02] LABS: BASOPHILS % (AUTO) 0.4 %; EOSINOPHILS # (AUTO) 0.1 10^3/uL (0.0-0.7); EOSINOPHILS % (AUTO) 1.5 %; HGB - HEMOGLOBIN 11.3 g/dL (12.0-16.0); LYMPHOCYTES # (AUTO) 1.2 10^3/uL (1.5-3.5); LYMPHOCYTES % (AUTO) 26.1 %; MEAN CORPUSCULAR HEMOGLOBIN 26.8 pg (27.0-31.0); MEAN CORPUSCULAR HGB CONC 31.3 g/dL (32.0-36.0); MEAN CORPUSCULAR VOLUME 85.7 fL (81.0-99.0); MEAN PLATELET VOLUME 12.4 fL (7.9-10.8); MONOCYTES # (AUTO) 0.4 10^3/uL (0.0-1.0); MONOCYTES % (AUTO) 7.7 %; NEUTROPHILS % (AUTO) 64.1 %; PLT - PLATELET COUNT 148 10^3/uL (130-450); RED BLOOD COUNT 4.21 10^6/uL (4.20-5.40); RED CELL DISTRIBUTION WIDTH 13.4 % (12.0-15.0); WHITE BLOOD COUNT 4.7 x10^3/uL (4.8-10.8)
[2019-05-05 06:10] LABS: CALCIUM 9.2 mg/dL (8.5-10.3); CREATININE 0.5 mg/dL (0.4-1.0); MAGNESIUM 2.3 mg/dL (1.7-2.8)
[2019-05-05] MEDS: ENOXAPARIN 40 MG/0.4 ML SYRINGE SUBQ SCH (09:06)
[2019-05-05] MEDS: FAMOTIDINE 20 MG TABLET PO SCH ×2 (09:07→21:01)
[2019-05-05] MEDS: POLYETHYLENE GLYCOL 3350 17 GM PACKET PO SCH (09:08)
--- NOTE | 2019-05-05 14:31 | PROVIDER PROGRESS NOTE ---
Subjective - Prog Note Date Prog Note Date: 05/05/19 - Subjective Pt reports feeling: Improved Subjective: pt has no seizure since pt was admitted in the hospital. pt's HR is normal. pt denies palpitation or chest pain. pt's lab test is unremarkable now. pt is medical-cleared for discharge by internal stand point. Current Medications - Current Medications Current Medications: Active Medications Acetaminophen (Tylenol) 650 mg PO Q4HR PRN PRN Reason: Pain 1 to 4 Albuterol () 2.5 mg INH RTQ4H PRN PRN Reason: Wheezing Enoxaparin Sodium (Lovenox) 40 mg SUBQ DAILY [facility] Last Admin: 05/05/19 09:06 Dose: 40 mg Famotidine (Pepcid) 20 mg PO BID [facility] Last Admin: 05/05/19 09:07 Dose: 20 mg Lorazepam (Ativan Inj (Vial)) 1 mg IVP Q2H PRN PRN Reason: Seizure Ondansetron HCl (Zofran Inj) 4 mg IVP Q6HR PRN PRN Reason: Nausea / Vomiting Polyethylene Glycol (Miralax) 17 gm PO DAILY [facility] Last Admin: 05/05/19 09:08 Dose: Not Given Sodium Chloride (Normal Saline Flush 0.9%) 10 ml IVP PRN PRN PRN Reason: NEEDED PER PROVIDER ORDERS Sodium Chloride (Normal Saline Flush 0.9%) 10 ml IVP 0100,0900,1700 [facility] Last Admin: 05/05/19 09:08 Dose: Not Given Pnv No.122/Iron/Folic Acid [ Multi Tablet] 1 tab PO DAILY 05/06/18 Buspirone HCl 10 mg PO BID 05/04/19 buPROPion HCl [Bupropion HCl Sr] 100 mg PO BID 05/04/19 hydrOXYzine HCl [Hydroxyzine HCl] 25 mg PO TID PRN 05/04/19 Objective - Vital Signs/Intake & Output Reviewed Vital Signs: Yes Vital Signs: Vital Signs x48h Temp Pulse Resp BP Pulse Ox 05/05/19 14:17 36.8 C 79 18 110/64 97 05/05/19 08:00 36.9 C 81 18 106/59 L 95 Intake & Output: Intake & Output 05/02/19 05/03/19 05/04/19 05/05/19 23:59 23:59 23:59 23:59 Intake Total 2151.2 2827 Output Total 1500 2200 Balance 651.2 627 - Objective General Appearance: positive: No acute distress, Alert. negative: Lethargic Eyes Bilateral: positive: Normal inspection, PERRL, No lid inflammation, Conjunctivae nml ENT: positive: ENT inspection nml, Pharynx nml, No signs of dehydration. negative: Purulent nasal drainage, Pharyngeal erythema, Oral lesions Neck: positive: Nml inspection, Thyroid nml, No JVD, Trachea midline. negative: Thyromegaly, Lymphadenopathy (R), Lymphadenopathy (L), Stiff neck, Swelling/bruising, Tracheal deviation Respiratory: positive: Chest non-tender, No respiratory distress, Breath sounds nml. negative: Wheezes, Rales, Rhonchi Cardiovascular: positive: Regular rate & rhythm, No murmur, No gallop. negative: Irregularly irregular, Extrasystoles, Tachycardia, Bradycardia, JVD present, Systolic murmur, Diastolic murmur Peripheral Pulses: 2+ Radial (R), 2+ Radial (L), 2+ Dorsalis pedis (R), 2+ Dorsalis pedis (L) Abdomen: positive: Non-tender, No organomegaly, Nml bowel sounds, No distention. negative: Tenderness, Guarding, Rebound Back: positive: Nml inspection. negative: CVA tenderness (R), CVA tenderness (L) Skin: positive: Color nml, No rash, Warm, Dry. negative: Cyanosis, Diaphoresis, Pallor Extremities: positive: Non-tender, Full ROM, Nml appearance. negative: Calf tenderness, Joint swelling, Letha's sign/cords Neurologic/Psychiatric: positive: Oriented x3, Motor nml, Sensation nml, Mood/affect nml. negative: Weakness, Sensory loss, Facial droop, Slurred/abnml speech, Depressed mood/affect - Lab Results Fish Bones: 05/05/19 05:10 05/05/19 05:10 Other Labs: Lab Results x24hrs 05/05/19 05/05/19 Range/Units 05:10 05:10 WBC 4.7 L (4.8-10.8) x10^3/uL RBC 4.21 (4.20-5.40) 10^6/uL Hgb 11.3 L (12.0-16.0) g/dL Hct 36.1 L (37.0-47.0) % MCV 85.7 (81.0-99.0) fL MCH 26.8 L (27.0-31.0) pg MCHC 31.3 L (32.0-36.0) g/dL RDW 13.4 (12.0-15.0) % Plt Count 148 (130-450) 10^3/uL MPV 12.4 H (7.9-10.8) fL Neut # (Auto) 3.0 (1.5-6.6) 10^3/uL Lymph # (Auto) 1.2 L (1.5-3.5) 10^3/uL [place] # (Auto) 0.4 (0.0-1.0) 10^3/uL Eos # (Auto) 0.1 (0.0-0.7) 10^3/uL Baso # (Auto) 0.0 (0.0-0.1) 10^3/uL Absolute Nucleated RBC 0.00 x10^3/uL Nucleated RBC % 0.0 /100WBC Sodium 143 (135-145) mmol/L Potassium 4.0 (3.5-5.0) mmol/L Chloride 109 (101-111) mmol/L Carbon Dioxide 23 (21-32) mmol/L Anion Gap 11.0 (6-13) BUN 11 (6-20) mg/dL Creatinine 0.5 (0.4-1.0) mg/dL Estimated GFR (MDRD) 152 (>89) Glucose 91 (70-100) mg/dL Calcium 9.2 (8.5-10.3) mg/dL Magnesium 2.3 (1.7-2.8) mg/dL ABX Reporting Has patient been on IV antibiotics over the past 48 hours?: No Sepsis Event Note (H) - Evaluation Current Stage of Sepsis: Ruled out Assessment/Plan - Problem List (1) Suicide attempt Impression: 05/05 pt is medical-cleared for discharge by internal respectively After cylinder worker assessed pt, social work recommend pt for hospitalization for SI/SA pt had suicide attempt to take unknown number and kinds of three medications: buspirone, hydroxyzine and Wellbutrinis. pt has hx of depression. Followup suicide protocol to monitor pt consult with healthcare social worker followup poison control's recommendations, closely monitor pt's seizure and other medical concerns. hold her home meds IVF of NS (2) Depression Conclusion/Plan: 05/05 stable pt has hx of depression. she took buspirone, hydroxyzine and Wellbutrinis at home. but now she is poisoned by these meds will hold above meds now, will resume when pt is stable, followup psychiatrist as out-pt (3) Seizure Conclusion/Plan: 05/05 resolved pt has seizure at ER. after pt was given Ativan, her seizure is controlled. It seems to be caused by either poison of medications she overtook or distress. pt has remote seizure hx at the past, advise pt followup her neurologist as out-pt ativan PRN for seizure control seizure precaution. (4) SVT (supraventricular tachycardia) Conclusion/Plan: 05/05 resolved pt had SVT at ER, HR was over 150. after pt was treated with Adenosine, her rate is around 120 [address] to [address]. pt denies chest pain, palpitation, SOB. pt is asymptomatic, and stable. SVT appear to be caused poison of medications she overtook or distress tele and vital closely monitor. (5) Hypokalemia Conclusion/Plan: 05/05 resolved pt's potassium is 3.1, will place the potassium (6) History of asthma Conclusion/Plan: 05/05 stable. pt has 97% sats on room air, pt has no SOB, cough, respiratory distress. pt is stable, no cough, no wheezing, no SOB albuterol PRN supplement of O2 as needed
[2019-05-06] MEDS: SODIUM CHLORIDE 0.9% 1,000 ML IV SCH (03:02)
[2019-05-06 05:05] LABS: BASOPHILS % (AUTO) 0.8 %; EOSINOPHILS # (AUTO) 0.2 10^3/uL (0.0-0.7); EOSINOPHILS % (AUTO) 4.5 %; LYMPHOCYTES # (AUTO) 1.8 10^3/uL (1.5-3.5); LYMPHOCYTES % (AUTO) 47.8 %; MEAN CORPUSCULAR HEMOGLOBIN 26.9 pg (27.0-31.0); MEAN CORPUSCULAR HGB CONC 31.1 g/dL (32.0-36.0); MEAN CORPUSCULAR VOLUME 86.6 fL (81.0-99.0); MEAN PLATELET VOLUME 12.2 fL (7.9-10.8); MONOCYTES # (AUTO) 0.3 10^3/uL (0.0-1.0); MONOCYTES % (AUTO) 8.7 %; NEUTROPHILS # (AUTO) 1.4 10^3/uL (1.5-6.6); NEUTROPHILS % (AUTO) 37.9 %; PLT - PLATELET COUNT 139 10^3/uL (130-450); RED BLOOD COUNT 4.09 10^6/uL (4.20-5.40); RED CELL DISTRIBUTION WIDTH 13.4 % (12.0-15.0); WHITE BLOOD COUNT 3.8 x10^3/uL (4.8-10.8)
[2019-05-06 05:14] LABS: CALCIUM 8.9 mg/dL (8.5-10.3); CREATININE 0.6 mg/dL (0.4-1.0)
[2019-05-06 07:59] VITALS: BP 111/54
[2019-05-06] MEDS: ENOXAPARIN 40 MG/0.4 ML SYRINGE SUBQ SCH (08:45)
[2019-05-06] MEDS: FAMOTIDINE 20 MG TABLET PO SCH (08:45)
[2019-05-06] MEDS: POLYETHYLENE GLYCOL 3350 17 GM PACKET PO SCH (08:48)
--- NOTE | 2019-05-06 09:01 | DISCHARGE SUMMARY ---
Discharge Summary Discharge Date: 05/06/19 Discharging Provider: MICHEL Primary Care Provider: Taryn John Condition at Discharge: Serious Discharge Disposition: 02 Transfer Acute Care Hosp Discharge Facility Name: [facility] - DIAGNOSES Admission Diagnoses: (1) Suicide attempt (2) Depression (3) Seizure (4) SVT (supraventricular tachycardia) (5) Hypokalemia (6) History of asthma Discharge Diagnoses with Status of Each Condition: (1) Suicide attempt stable. transfer to [facility] for further management (2) Depression stable (3) Seizure stable. pt has No more seizure in the hospital (4) SVT (supraventricular tachycardia) resolved (5) Hypokalemia resolved (6) History of asthma stable. - HPI History of Present Illness: Ms. Pulliam is a 23-yrs-old female with a history of depression and remote seizure at her age 15 and asthma, who present ER for complain of suicide attempt. Upon examination, pt is alert and oriented, she appear fatigue and is easy to fall into sleep. she report today she was trying to nurse her younger son when her older one pooped on the floor and she became overwhelmed on the distress, then she took a lots of pills. She is unknown how many pills she exactly took. She has been consulting for her depression. she took buspirone, hydroxyzine and Wellbutrinis for her depression at home. pt was found to have seizure at ER. pt was given Ativan. Now her seizure is controlled. she did not remember how her seizure started and what happened on her seizure. pt also developed SVT of HR above 150 pause at ER. She was given once 6 mg Adenosine first, then 12 mg Adenosine. Now her tele reveals HR [address] She denies chest pain, palpitation, shortness of breath. lab tests except potassium 3.1 are unremarkable. Vital reveals pt is afebrile, and has tachycardia at 155, otherwise she is hemodynamical stable now. Poison control was contacted, and recommended pt is automatic admission for monitoring withdrawal seizure and other medical concerns. - HOSPITAL COURSE Hospital Course: pt was admitted for suicide attempt. she became overwhelmed on the distress of her children's behaviors, then she took "a lots of her own anti-depression pills". She was uncertain how many pills she took. Poison control was contacted. The recommendation was followed up. She had once seizure in ER and developed SVT at the ER. she has no more seizure in patient. Her SVT was treated in ER with Adenosine. Her SVT was controlled. She has no more SVT in patient. Continuing to have EKG for pt, it is unremarkable. SW assessed pt, Pt was recommended by SW to be d/c to [facility]. Pt is transferred to [facility] for high level care - ALLERGIES Allergies/Adverse Reactions: Allergies Allergy/AdvReac Type Severity Reaction Status Date / Time No Known Drug Allergies Allergy Verified 05/04/19 10:54 - MEDICATIONS Home Medications: Ambulatory Orders Medication Instructions Recorded Confirmed Pnv No.122/Iron/Folic Acid 1 tab PO DAILY 05/06/18 05/04/19 [ Multi Tablet] Buspirone HCl 10 mg PO BID 05/04/19 05/04/19 buPROPion HCl [Bupropion HCl Sr] 100 mg PO BID 05/04/19 05/04/19 hydrOXYzine HCl [Hydroxyzine HCl] 25 mg PO TID PRN 05/04/19 05/04/19 - PHYSICAL EXAM AT DISCHARGE General Appearance: positive: No acute distress, Alert. negative: Lethargic Eyes Bilateral: positive: Normal inspection, PERRL, No lid inflammation, Conjunctivae nml ENT: positive: ENT inspection nml, Pharynx nml, No signs of dehydration. negative: Purulent nasal drainage, Pharyngeal erythema, Oral lesions Neck: positive: Nml inspection, Thyroid nml, No JVD, Trachea midline. negative: Thyromegaly, Lymphadenopathy (R), Lymphadenopathy (L), Stiff neck, Swelling/bruising, Tracheal deviation Respiratory: positive: Chest non-tender, No respiratory distress, Breath sounds nml. negative: Wheezes, Rales, Rhonchi Cardiovascular: positive: Regular rate & rhythm, No murmur, No gallop. negative: Irregularly irregular, Extrasystoles, Tachycardia, Bradycardia, JVD present, Systolic murmur, Diastolic murmur Peripheral Pulses: positive: 2+ Abdomen: positive: Non-tender, No organomegaly, Nml bowel sounds, No distention. negative: Tenderness, Guarding, Rebound Back: positive: Nml inspection. negative: CVA tenderness (R), CVA tenderness (L) Skin: positive: Color nml, No rash, Warm, Dry. negative: Cyanosis, Diaphoresis, Pallor Extremities: positive: Non-tender, Full ROM, Nml appearance. negative: Calf tenderness, Joint swelling, Letha's sign/cords Neurologic/Psychiatric: positive: Oriented x3, Motor nml, Sensation nml, Mood/affect nml. negative: Weakness, Sensory loss, Facial droop, Slurred/abnml speech, Depressed mood/affect - LABS Result Diagrams: 05/06/19 04:30 05/06/19 04:30 - SEPSIS Current Stage of Sepsis: Ruled out - FOLLOW UP Follow Up: pt is transferred to [facility] for high level care - TIME SPENT Time Spent in Discharge (Minutes): 50
== END 2019-05-06 10:35 ==
LOC: ED 10:43 → MS2 15:38
PROVIDERS: ADMIT Nurse Practitioner Gerontology; ATTEND Nurse Practitioner Gerontology
DX: T43.592A Poisoning by other antipsychotics and neuroleptics, intentional self-harm, initial encounter (principal); T43.292A Poisoning by other antidepressants, intentional self-harm, initial encounter; I47.1 Supraventricular tachycardia; R56.9 Unspecified convulsions; Y92.009 Unspecified place in unspecified non-institutional (private) residence as the place of occurrence of the external cause; O99.345 Other mental disorders complicating the puerperium; F53.0 Postpartum depression; F41.9 Anxiety disorder, unspecified; E87.6 Hypokalemia; J45.909 Unspecified asthma, uncomplicated; L30.9 Dermatitis, unspecified; Z87.891 Personal history of nicotine dependence
CPT/HCPCS: 36415; 80048; 80320; 80329; 81003; 81025; 83690; 83735; 84484; 85025; 93005; 96361; 96365; 96366; 96367; 96372; 96375; 99284; 99285; A9270; G0378; J0153; J1650; J2060; J3411; 80053; 80306; 80307; 81001; 84443; 87086

== ENCOUNTER 2019-10-15 00:57 | Emergency (ER) | payer OTHER ==
[2019-10-15] MEDS ORDERED: ONDANSETRON ODT 4 MG TABLET TL STA (01:04)
[2019-10-15 01:08] VITALS: BP 111/81
[2019-10-15] MEDS ORDERED: ONDANSETRON ODT 4 MG Prepack 2 TL PRN (01:19)
--- NOTE | 2019-10-15 01:19 | ED Physician Documentation ---
PD HPI NVD - Stated complaint Stated Complaint: VOMITING - Chief complaint Chief Complaint: General - History obtained from History obtained from: Patient - History of Present Illness Timing - onset: Today Timing - duration: Minutes Timing - details: Abrupt onset, Still present Associated symptoms: Abdominal pain Contributing factors: Sick contact Improved by: Vomiting Similar symptoms before: Diagnosis (gastroenteritis) Recently seen: Not recently seen - Additonal information Additional information: 24-year-old mother who has brought her young child into the emergency department today with vomiting has developed vomiting. She has had this happen to her last year with her entire family being sick for about a week. Today she has had a baby that was sick for about 1-1/2 they did not require any treatment her 3-year-old son has had persistent vomiting and not able to hold down fluids and she has brought him to the emergency department and he has responded well to Zofran. The patient states that last time around this was a longer illness and this seems to be much shorter. Review of Systems Constitutional: denies: Fever Eyes: denies: Decreased vision Ears: denies: Ear pain Nose: denies: Congestion Respiratory: denies: Cough GI: reports: Abdominal Pain, Nausea, Vomiting : denies: Dysuria, Frequency PD PAST MEDICAL HISTORY - Past Medical History Cardiovascular: None Respiratory: Asthma Neuro: Other (febrile seizure) Endocrine/Autoimmune: None GI: GERD (during ) CORPORATE DIRECTOR: None : None HEENT: Dental implants Psych: Depression, Anxiety Musculoskeletal: None Derm: Eczema - Past Surgical History Past Surgical History: Yes /CORPORATE DIRECTOR: section HEENT: Other - Present Medications Home Medications: Ambulatory Orders Medication Instructions Recorded Confirmed No122/Iron/Folic Acid 1 tab PO DAILY 05/06/18 05/04/19 [ Multi Tablet] Buspirone HCl 10 mg PO BID 05/04/19 05/04/19 buPROPion HCl [Bupropion HCl Sr] 100 mg PO BID 05/04/19 05/04/19 hydrOXYzine HCl [Hydroxyzine HCl] 25 mg PO TID PRN 05/04/19 05/04/19 Ondansetron Odt [Zofran] 4 mg TL Q6H PRN #10 tablet 10/15/19 - Allergies Allergies/Adverse Reactions: Allergies Allergy/AdvReac Type Severity Reaction Status Date / Time No Known Drug Allergies Allergy Verified 05/04/19 10:54 - Social History Does the pt smoke?: No Smoking Status: Former smoker Does the pt drink ETOH?: Yes Does the pt have substance abuse?: No - Immunizations Immunizations are current?: Yes - POLST Patient has POLST: No PD ED PE NORMAL - Vitals Vital signs reviewed: Yes (diastolic hypertension weight is erroneously registered as 135kg. ) - General General: Alert and oriented X 3, No acute distress, Well developed/nourished - HEENT HEENT: Atraumatic, PERRL, EOMI - Neck Neck: Supple, no meningeal sign - Cardiac Cardiac: RRR, No murmur - Respiratory Respiratory: No respiratory distress, Clear bilaterally - Abdomen Abdomen: Normal bowel sounds, Soft, Non tender, Non distended, No organomegaly - Back Back: No CVA TTP, No spinal TTP - Derm Derm: Normal color, Warm and dry, No rash - Extremities Extremities: No deformity, No edema - Neuro Neuro: it sales consultant 2-12 intact, No motor deficit, No sensory deficit, Normal speech Eye Opening: Spontaneous Motor: Obeys Commands Verbal: Oriented GCS Score: 15 - Psych Psych: Normal mood, Normal affect Results - Vitals Vitals: Vital Signs - 24 hr 10/15/19 01:04 Temperature 36.7 C Heart Rate 100 Respiratory 22 Rate Blood Pressure 111/81 H O2 Saturation 97 Oxygen O2 Source Room air PD MEDICAL DECISION MAKING - ED course Complexity details: reviewed old records, considered differential, d/w patient ED course: 24-year-old female with 2 children sick at home has developed vomiting herself. She is administered Zofran here in the emergency department and dispensed Zofran to use at home. Departure - Departure Disposition: 01 Home, Self Care Clinical Impression: Gastroenteritis Condition: Stable Instructions: ED Gastroenteritis Viral Follow-Up: COLLEEN Peng [Provider Group] Prescriptions: Ondansetron Odt [Zofran] 4 mg TL Q6H PRN #10 tablet PRN Reason: Nausea / Vomiting Discharge Date/Time: 10/15/19 01:36
== END 2019-10-15 01:36 | disposition home or self-care (01) ==
LOC: ED 00:57
DX: K52.9 Noninfective gastroenteritis and colitis, unspecified (principal); Z87.891 Personal history of nicotine dependence
CPT/HCPCS: 99282; 99284; Q0162

== ENCOUNTER 2021-06-26 08:40 | Emergency (ER) | payer OTHER ==
[2021-06-26 09:11] LABS: BILIRUBIN,URINE NEGATIVE (NEGATIVE); GLUCOSE, URINE (UA) NEGATIVE (NEGATIVE); KETONES,URINE (UA) NEGATIVE (NEGATIVE); LEUKOCYTE ESTERASE, URINE SMALL (NEGATIVE); NITRITE,URINE NEGATIVE (NEGATIVE); OCCULT BLOOD,URINE MODERATE (NEGATIVE); PROTEIN,URINE 100 mg/dL (NEGATIVE); UROBILINOGEN,URINE 0.2 (NORMAL) E.U./dL (NORMAL)
[2021-06-26 09:15] LABS: CLARITY,URINE SL. CLOUDY (CLEAR); HCG UR QUAL NEGATIVE
[2021-06-26] MEDS ORDERED: HYDROmorphone 1 MG/ML CARPUJECT IVP STA ×2 (09:18→10:13)
[2021-06-26] MEDS ORDERED: ONDANSETRON 4 MG/2 ML VIAL IVP STA (09:18)
[2021-06-26] MEDS ORDERED: SODIUM CHLORIDE 0.9% 1,000 ML IV STA (09:18)
--- NOTE | 2021-06-26 09:18 | ED Physician Documentation ---
PD HPI ABD PAIN - Stated complaint Stated Complaint: STOMACH PX - Chief complaint Chief Complaint: Abd Pain - History obtained from History obtained from: Patient - History of Present Illness Timing - onset: How many days ago (4-5) Timing - duration: Days (4-5) Timing - details: Gradual onset, Still present, Waxing and waning Quality: Aching, Sharp, Pain Location: RLQ Radiation: Right flank Improved by: No: Eating, BM (has had just small BMs the past 4-5 days. She had had multiple watery diarrheal stools the day prior and then had onset of the RLQ pain that has persisted. Now also having some dysuria since yesterday. Had not had the dysuria prior.) Worsened by: No: Eating Associated symptoms: Nausea, Diarrhea (5 days ago for a day, now minimal BMs since.), Dysuria. No: Fever, Vomiting, Vaginal bleeding (LMP 2 weeks ago), Vaginal dc Similar symptoms before: Has not had sx before Recently seen: Not recently seen Review of Systems Constitutional: reports: Fatigue. denies: Fever, Chills Nose: denies: Rhinorrhea / runny nose, Congestion Throat: denies: Sore throat Cardiac: denies: Chest pain / pressure Respiratory: denies: Cough GI: reports: Abdominal Pain, Nausea, Diarrhea (5 days ago). denies: Vomiting, Constipation : reports: Dysuria, LMP (2 weeks ago). denies: Discharge Skin: denies: Rash, Lesions Neurologic: reports: Generalized weakness. denies: Near syncope PD PAST MEDICAL HISTORY - Past Medical History Cardiovascular: None Respiratory: Asthma Neuro: Other Endocrine/Autoimmune: None GI: GERD BULB PACKER: None : None HEENT: Dental implants Psych: Depression, Anxiety Musculoskeletal: None Derm: Eczema - Past Surgical History Past Surgical History: Yes /BULB PACKER: section HEENT: Other - Present Medications Home Medications: Ambulatory Orders Medication Instructions Recorded Confirmed No122/Iron/Folic Acid 1 tab PO DAILY 05/06/18 05/04/19 [ Multi Tablet] Buspirone HCl 10 mg PO BID 05/04/19 05/04/19 buPROPion HCl [Bupropion HCl Sr] 100 mg PO BID 05/04/19 05/04/19 hydrOXYzine HCL [Hydroxyzine HCl] 25 mg PO TID PRN 05/04/19 05/04/19 Ondansetron Odt [Zofran] 4 mg TL Q6H PRN #10 tablet 10/15/19 Docusate Sodium 100Mg Capsule 100 mg PO DAILY #20 cap 06/26/21 [Colace 100Mg Capsule] HYDROcod/ACETAM 5/325 [[place] 5/325] 1 ea PO Q6H PRN #10 tablet 06/26/21 Naproxen 250 mg PO TID 7 Days #20 tablet 06/26/21 cephALEXin [Keflex] 500 mg PO TID 5 Days #15 cap 06/26/21 hydrOXYzine HCL [Hydroxyzine HCl] 25 mg PO QPM PRN #15 tablet 06/26/21 - Allergies Allergies/Adverse Reactions: Allergies Allergy/AdvReac Type Severity Reaction Status Date / Time No Known Drug Allergies Allergy Verified 06/26/21 08:56 - Social History Does the pt smoke?: No Smoking Status: Former smoker Does the pt drink ETOH?: Yes Does the pt have substance abuse?: No - Immunizations Immunizations are current?: Yes - POLST Patient has POLST: No PD ED PE NORMAL - Vitals Vital signs reviewed: Yes - General General: Alert and oriented X 3, Well developed/nourished, Other (appears in pain lower abd) - Neck Neck: Supple, no meningeal sign, No adenopathy - Cardiac Cardiac: RRR, No murmur - Respiratory Respiratory: Clear bilaterally - Abdomen Abdomen: Normal bowel sounds, Soft, Non distended, No organomegaly, Other (tender RLQ to palpation with guarding, and to percussion. No rebound. ) - Female Female : Deferred - Rectal Rectal: Deferred - Back Back: No CVA TTP - Derm Derm: Normal color, Warm and dry - Extremities Extremities: No edema, No calf tenderness / cord - Neuro Neuro: Alert and oriented X 3, No motor deficit, Normal speech Results - Vitals Vitals: Vital Signs - 24 hr 06/26/21 06/26/21 08:47 10:44 Temperature 37.1 C Heart Rate 80 77 Respiratory 16 16 Rate Blood Pressure 109/71 115/66 O2 Saturation 97 99 Oxygen O2 Source Room air - Labs Labs: Laboratory Tests 06/26/21 06/26/21 06/26/21 09:01 09:30 09:30 WBC 7.6 RBC 4.58 Hgb 13.2 Hct 40.1 MCV 87.6 MCH 28.8 MCHC 32.9 RDW 11.9 L Plt Count 145 MPV 12.6 H Neut # (Auto) 4.9 Lymph # (Auto) 1.8 [place] # (Auto) 0.7 Eos # (Auto) 0.1 Baso # (Auto) 0.1 Absolute Nucleated RBC 0.00 Nucleated RBC % 0.0 Manual Slide Review Indicated RBC Morph Micro Appear 1+ ANISOCYTOSIS Sodium 138 Potassium 3.5 Chloride 102 Carbon Dioxide 24 Anion Gap 12.0 BUN 12 Creatinine 0.7 Estimated GFR (MDRD) 100 Glucose 91 Calcium 9.3 Total Bilirubin 1.1 H AST 17 ALT 14 Alkaline Phosphatase 51 Total Protein 7.1 Albumin 4.2 Globulin 2.9 Albumin/Globulin Ratio 1.4 Lipase 20 L Urine Color YELLOW Urine Clarity SL. CLOUDY Urine pH 7.0 Ur Specific [place] 1.025 Urine Protein 100 H Urine Glucose (UA) NEGATIVE Urine Ketones NEGATIVE Urine Occult Blood MODERATE H Urine Nitrite NEGATIVE Urine Bilirubin NEGATIVE Urine Urobilinogen 0.2 (NORMAL) Ur Leukocyte Esterase SMALL H Urine RBC 6-10 H Urine WBC >25 H Ur Squamous Epith Cells FEW Squamous Urine Bacteria Moderate H Urine HCG, Qual NEGATIVE - Rads (name of study) abd/pelvic CT Radiology: Prelim report reviewed, See rad report (normal appendix. dense stool in intestine, particularly RLQ. 2.5 cm simple right ovarian cyst. No free fluid. No kidney stones nor hydronephrosis. ) PD MEDICAL DECISION MAKING - ED course Complexity details: reviewed results, re-evaluated patient, considered differential (concern for appy, given some diarrhea then focal abd pain. Now with some dysuria, but had had pain few days prior. Will need to eval for appy, pyelo, stones, other process. ), d/w patient Departure - Departure Disposition: 01 Home, Self Care Clinical Impression: Abdominal pain Qualifiers: Abdominal location: right lower quadrant Qualified Code(s): R10.31 - Right lower quadrant pain UTI (urinary tract infection) Qualifiers: Urinary tract infection type: acute cystitis Hematuria presence: without hematuria Qualified Code(s): N30.00 - Acute cystitis without hematuria Constipation Qualifiers: Constipation type: unspecified constipation type Qualified Code(s): K59.00 - Constipation, unspecified Ovarian cyst Qualifiers: Laterality: right Qualified Code(s): N83.201 - Unspecified ovarian cyst, right side Insomnia Qualifiers: Insomnia type: unspecified Qualified Code(s): G47.00 - Insomnia, unspecified Condition: Stable Record reviewed to determine appropriate education?: Yes Instructions: ED Constipation, ED UTI Cystitis Female Follow-Up: GITA GLEASON DO [Primary Care Provider] - Prescriptions: Docusate Sodium 100Mg Capsule [Colace 100Mg Capsule] 100 mg PO DAILY #20 cap hydrOXYzine HCL [Hydroxyzine HCl] 25 mg PO QPM PRN #15 tablet PRN Reason: Insomnia cephALEXin [Keflex] 500 mg PO TID 5 Days #15 cap Naproxen 250 mg PO TID 7 Days #20 tablet HYDROcod/ACETAM 5/325 [[place] 5/325] 1 ea PO Q6H PRN #10 tablet PRN Reason: Pain Comments: Your CT scan shows a normal appendix. You do have a generous amount of stool located in the right lower quadrant in particular some may be accounting for some of the pain in that area. He also have a small simple cyst 2.5 cm (about 1 inch) which typically is small enough that it would not usually cause pain. There may be some element of pain from that given the crowding from some constipation. He also have a urinary tract infection and could be hurting through the bladder and up towards the back and the kidneys. No signs of kidney stones on CT scan. At this point I would encourage you to stay well-hydrated. Use cephalexin antibiotic as directed for the bladder infection and naproxen 3 times a day with food to help with pain and inflammation. This would be useful for the cyst in the intestines. Also docusate stool softener twice daily for the next few days and then once daily after that. Add hydrocodone sparingly if needed for pain in the next day or 2. This is to hurt less but balance with the concern that it can be constipating. I would anticipate improvement over the next 2 to 3 days. Return if worsening and follow-up if not improving in that timeframe. I am prescribing a short course of narcotic pain medication for you. These are potentially dangerous and addictive medications that should be used carefully. These medications may constipate you. Take an [id number] stool softener such as docusate twice daily with plenty of water while taking these medications. If you go 24 hours without a bowel movement, take [id number] MiraLAX, per package instructions. Do not drink or drive while taking these medications. If you received narcotic or sedating medications while in the emergency department do not drive for 24 hours. Store this medication in a safe, secure place and out of reach of children. It is a violation of federal law to give or sell this medication to another person or to use in a manner other than prescribed. The ED will not refill narcotic prescriptions, including prescriptions lost or stolen. You can dispose of unwanted medications at the [facility]'s office or at several pharmacies such as [facility]. I did transmit these prescriptions to [facility] pharmacy. Discharge Date/Time: 06/26/21 11:43
[2021-06-26 09:23] LABS: WBC,URINE >25 /HPF (0-5)
[2021-06-26 09:24] LABS: BACTERIA,URINE Moderate /HPF (None Seen); SQUAMOUS EPITHELIAL CELL,UR FEW Squamous (<= Few)
[2021-06-26 09:33] LABS: BASOPHILS # (AUTO) 0.1 10^3/uL (0.0-0.1); BASOPHILS % (AUTO) 0.7 %; EOSINOPHILS # (AUTO) 0.1 10^3/uL (0.0-0.7); EOSINOPHILS % (AUTO) 1.3 %; HCT - HEMATOCRIT 40.1 % (37.0-47.0); HGB - HEMOGLOBIN 13.2 g/dL (12.0-16.0); LYMPHOCYTES # (AUTO) 1.8 10^3/uL (1.5-3.5); LYMPHOCYTES % (AUTO) 23.7 %; MEAN CORPUSCULAR HEMOGLOBIN 28.8 pg (27.0-31.0); MEAN CORPUSCULAR HGB CONC 32.9 g/dL (32.0-36.0); MEAN CORPUSCULAR VOLUME 87.6 fL (81.0-99.0); MEAN PLATELET VOLUME 12.6 fL (7.9-10.8); MONOCYTES # (AUTO) 0.7 10^3/uL (0.0-1.0); MONOCYTES % (AUTO) 8.9 %; NEUTROPHILS # (AUTO) 4.9 10^3/uL (1.5-6.6); NEUTROPHILS % (AUTO) 65.1 %; PLT - PLATELET COUNT 145 10^3/uL (130-450); RED BLOOD COUNT 4.58 10^6/uL (4.20-5.40); RED CELL DISTRIBUTION WIDTH 11.9 % (12.0-15.0); WHITE BLOOD COUNT 7.6 x10^3/uL (4.8-10.8)
[2021-06-26] MEDS ORDERED: IOPAMIDOL-300 100 ML VIAL ONE (09:34)
[2021-06-26 09:36] LABS: SLIDE REVIEW? Indicated
[2021-06-26 09:48] LABS: ALBUMIN 4.2 g/dL (3.2-5.5); ALBUMIN/GLOBULIN RATIO 1.4 (1.0-2.2); BILIRUBIN,TOTAL 1.1 mg/dL (0.2-1.0); CALCIUM 9.3 mg/dL (8.5-10.3); CREATININE 0.7 mg/dL (0.4-1.0); POTASSIUM 3.5 mmol/L (3.5-5.0); TOTAL PROTEIN 7.1 g/dL (6.7-8.2)
[2021-06-26 09:52] LABS: RBC MORPHOLOGY (MULTIPLE) 1+ ANISOCYTOSIS (NORMAL)
[2021-06-26] MEDS ORDERED: IOPAMIDOL-300 100 ML VIAL IVP ONE (10:08)
--- NOTE | 2021-06-26 10:33 | CT Report ---
PROCEDURE: Abdomen/Pelvis W INDICATIONS: RLQ Abdominal pain, appendicitis suspected CONTRAST: IV CONTRAST: Isovue 300 ml: 100 PO CONTRAST: *NO PO CONTRAST TECHNIQUE: After the administration of IV contrast, 5 mm thick sections acquired from the diaphragms to the symp hysis. 5 mm thick coronal and sagittal reformats were acquired. For radiation dose reduction, the f ollowing was used: automated exposure control, adjustment of mA and/or kV according to patient size. COMPARISON: None. FINDINGS: Image quality: Excellent. ABDOMEN: Lung bases: Lung bases are clear. Heart size is normal. Solid organs: Liver and spleen are normal in size and enhancement. Gallbladder wall does not appear thickened. Biliary system is non dilated. Pancreas enhances normally. No adrenal nodules. Kidn eys demonstrate normal size and enhancement, without hydronephrosis. Peritoneum and bowel: In this patient with this given history, scrutiny is given to the appendix. Th e appendix is well-seen and appears normal. No focal right lower quadrant inflammatory changes are se en. Bowel loops demonstrate normal wall thickness and caliber. No free fluid or air. There is a mode rate amount of stool seen within the colon. Nodes and vessels: No retroperitoneal or mesenteric adenopathy by size criteria. Aorta and inferior vena cava are normal in size. Miscellaneous: No ventral hernias. Incidental note is made of body ornamentation artifact. PELVIS: Genitourinary: Bladder wall thickness is normal. The uterus demonstrates an unremarkable appearance for age. No adnexal masses are seen. There is a right ovarian simple appearing cyst seen that measur es up to 2.6 cm. Miscellaneous: No inguinal hernias or adenopathy. Bones: No suspicious bony lesions. No vertebral body compression fractures. IMPRESSION: Negative for appendicitis. No focal right lower quadrant inflammatory changes are seen. There is a moderate amount of stool seen within the colon. Please correlate with clinical constipatio n. Simple appearing 2.6 cm right ovarian cyst noted, which is considered to be within physiologic limits . Reviewed by: Mandeep Tyson MD on 06/26/2021 9:32 AM BLAS Approved by: Mandeep Tyson MD on 06/26/2021 9:32 AM BLAS Station ID: [id number]
[2021-06-26 10:44] VITALS: BP 115/66
[2021-06-26] MEDS ORDERED: KETOROLAC 15 MG/ML VIAL IVP STA (10:49)
[2021-06-26] MEDS ORDERED: DOCUSATE SODIUM 100 MG CAPSULE PO STA (10:49)
[2021-06-26] MEDS ORDERED: cefTRIAXone 1 GM VIAL IVP STA (10:49)
== END 2021-06-26 11:43 | disposition home or self-care (01) ==
LOC: ED 08:40
DX: N30.00 Acute cystitis without hematuria (principal); R10.31 Right lower quadrant pain; N83.201 Unspecified ovarian cyst, right side; K59.00 Constipation, unspecified; G47.00 Insomnia, unspecified; Z20.822 Contact with and (suspected) exposure to COVID-19; Z87.891 Personal history of nicotine dependence
CPT/HCPCS: 36415; 74177; 80053; 81001; 81025; 83690; 85025; 87635; 96374; 96375; 96376; 99284; 99285; A9270; J1170; Q9967

== ENCOUNTER 2021-11-08 18:40 | Emergency (ER) | payer OTHER ==
[2021-11-08] MEDS ORDERED: SODIUM CHLORIDE 0.9% 1,000 ML IV STA (19:29)
[2021-11-08] MEDS ORDERED: KETOROLAC 15 MG/ML VIAL IVP STA (19:29)
[2021-11-08] MEDS ORDERED: LOPERAMIDE 2 MG CAPSULE PO STA (19:29)
[2021-11-08] MEDS ORDERED: ONDANSETRON 4 MG/2 ML VIAL IVP STA (19:29)
--- NOTE | 2021-11-08 19:30 | ED Physician Documentation ---
PD HPI ABD PAIN - Stated complaint Stated Complaint: VOMITING, DIARRHEA, - History obtained from History obtained from: Patient - Additional information Additional information: Previously healthy 26-year-old woman with history of , anxiety and depression presents with sudden onset vomiting and diarrhea associated with abdominal cramping and all over body pain starting at noon today. She was fine this morning. Her son was sick with a similar illness yesterday but is already better. She denies fevers. No other sick contacts. Review of Systems Constitutional: reports: Chills, Myalgias. denies: Fever Nose: denies: Rhinorrhea / runny nose Cardiac: denies: Chest pain / pressure, Palpitations Respiratory: denies: Dyspnea, Cough PD PAST MEDICAL HISTORY - Past Medical History Cardiovascular: None Respiratory: Asthma Neuro: Other Endocrine/Autoimmune: None GI: GERD REGISTERED DENTAL HYGIENIST: None : None HEENT: Dental implants Psych: Depression, Anxiety Musculoskeletal: None Derm: Eczema - Past Surgical History Past Surgical History: Yes /REGISTERED DENTAL HYGIENIST: section HEENT: Other - Present Medications Home Medications: Ambulatory Orders Medication Instructions Recorded Confirmed buPROPion HCl [Bupropion HCl Sr] 100 mg PO BID 05/04/19 11/08/21 hydrOXYzine HCL [Hydroxyzine HCl] 25 mg PO QPM PRN #15 tablet 06/26/21 11/08/21 Cetirizine [ZyrTEC] 10 mg PO ONCE 11/08/21 11/08/21 Cyclobenzaprine [Flexeril] 10 mg PO TID PRN 11/08/21 11/08/21 Meloxicam [Mobic] 7.5 mg PO BID PRN #10 tablet 11/08/21 Ondansetron Odt [Zofran] 4 mg TL Q6H PRN #10 tablet 11/08/21 - Allergies Allergies/Adverse Reactions: Allergies Allergy/AdvReac Type Severity Reaction Status Date / Time No Known Drug Allergies Allergy Verified 06/26/21 08:56 - Social History Does the pt smoke?: No Smoking Status: Former smoker Does the pt drink ETOH?: Yes Does the pt have substance abuse?: No - Immunizations Immunizations are current?: Yes - POLST Patient has POLST: No PD ED PE NORMAL - Vitals Vital signs reviewed: Yes - General General: Alert and oriented X 3, No acute distress - HEENT HEENT: Other (Dry mucous membranes) - Cardiac Cardiac: RRR (Borderline resting tachycardia), No murmur - Respiratory Respiratory: No respiratory distress - Abdomen Abdomen: Soft, Non tender - Derm Derm: No rash - Neuro Neuro: Alert and oriented X 3, Normal speech Results - Vitals Vitals: Vital Signs - 24 hr 11/08/21 11/08/21 18:45 20:12 Temperature 36.2 C L 36.7 C Heart Rate 95 80 Respiratory 18 16 Rate Blood Pressure 100/64 103/70 O2 Saturation 98 98 Oxygen O2 Source Room air - Labs Labs: Laboratory Tests 11/08/21 19:49 Sodium 140 Potassium 3.6 Chloride 103 Carbon Dioxide 23 Anion Gap 14.0 H BUN 14 Creatinine 0.6 Estimated GFR (MDRD) 120 Glucose 108 H Calcium 9.5 Total Bilirubin 1.8 H AST 16 ALT 14 Alkaline Phosphatase 56 Total Protein 7.7 Albumin 4.5 Globulin 3.2 Albumin/Globulin Ratio 1.4 Lipase 18 L PD MEDICAL DECISION MAKING - ED course ED course: 26-year-old woman with vomiting and diarrhea in the setting of her son having similar syndrome yesterday. She was feeling much better after IV Toradol, Zofran and oral Imodium. Passed p.o. challenge. Remained nontender on reexamination prior to discharge. She was given a prepack of Vicodin as I do not have any NSAIDs for her to go home with and she wanted something for pain just in case and a prepack of Zofran. Departure - Departure Disposition: 01 Home, Self Care Clinical Impression: Vomiting, Acute diarrhea Condition: Good Record reviewed to determine appropriate education?: Yes Instructions: ED Nausea Vomiting Prescriptions: Meloxicam [Mobic] 7.5 mg PO BID PRN #10 tablet PRN Reason: Pain Ondansetron Odt [Zofran] 4 mg TL Q6H PRN #10 tablet PRN Reason: Nausea / Vomiting Comments: Prescription sent electronically to [facility] [employer]. That said hopefully will be better by tomorrow and will not need anything for symptoms after tonight. Return for new or worsening symptoms. Also return if not better in the next 12 to 24 hours.
[2021-11-08 20:21] LABS: ALBUMIN 4.5 g/dL (3.2-5.5); ALBUMIN/GLOBULIN RATIO 1.4 (1.0-2.2); CALCIUM 9.5 mg/dL (8.5-10.3); CREATININE 0.6 mg/dL (0.4-1.0); POTASSIUM 3.6 mmol/L (3.5-5.0); TOTAL PROTEIN 7.7 g/dL (6.7-8.2)
[2021-11-08 20:23] LABS: BILIRUBIN,TOTAL 1.8 mg/dL (0.2-1.0)
[2021-11-08] MEDS ORDERED: ONDANSETRON ODT 4 MG Prepack 2 TL STA (20:48)
[2021-11-08] MEDS ORDERED: HYDROcod/ACET 5/325 Prepack 4 PO STA (20:48)
[2021-11-08 21:27] VITALS: BP 110/70
== END 2021-11-08 21:20 | disposition home or self-care (01) ==
LOC: EDUNIT# → ED 18:40
DX: R11.10 Vomiting, unspecified (principal); R19.7 Diarrhea, unspecified; Z87.891 Personal history of nicotine dependence
CPT/HCPCS: 36415; 80053; 83690; 96374; 96375; 99283; A9270